=== PATIENT | male | born 1945 | race Caucasian/White ===

== ENCOUNTER → 2018-02-12 07:06 | Outpatient (CLI) | payer OTHER, SELFPAY ==
[2018-02-12 08:30] LABS: Appearance Urine UA CLEAR; Bilirubin Urine UA NEGATIVE (NEGATIVE); Color Urine UA YELLOW; Glucose Urine UA NEGATIVE (Normal); Ketones Urine UA TRACE (NEGATIVE); Leukocyte Esterase Urine UA NEGATIVE (NEGATIVE); Nitrite Urine UA Negative (Negative); Occult Blood Urine UA TRACE-INTACT (Negative); Protein Urine UA NEGATIVE (Negative); Specific Gravity Urine UA 1.015 (1.000-1.035); Urobilinogen Urine UA 0.2 E.U./dL (0.2); pH Urine UA 6.5 (4.5-8.0)
[2018-02-12 08:33] LABS: Add Manual Diff / Slide Review NO; Basophils Percent Auto 0.4 % (0-2); Eosinophils Percent Auto 2.8 % (2-4); Hematocrit 40.5 % (41-53); Hemoglobin 13.8 g/dL (13.5-17.5); Lymphocytes Percent Auto 35.6 % (25-40); Mean Corpuscular Hemoglobin 31.1 PG (26-34); Mean Corpuscular Volume 91.6 fL (80-100); Monocytes Percent Auto 9.3 % (3-14); Neutrophils Absolute Auto 3700 /uL (3000-5900); Neutrophils Percent Auto 51.9 % (50-75); Platelet Count 271 X10^3/uL (150-400); Red Blood Cell Count 4.42 X10^6/uL (4.5-5.9); Red Cell Distribution Width 14.1 % (11.6-14.8); White Blood Cell Count 7.1 X10^3/uL (4.5-11.0)
[2018-02-12 08:56] LABS: Alanine Aminotransferase 23 IU/L (21-72); Albumin 4.3 g/dL (3.5-5.0); Albumin Globulin Ratio 1.5 (1.0-2.8); Alkaline Phosphatase 61 U/L (38-126); Aspartate Aminotransferase 25 IU/L (17-59); Bilirubin Total 0.6 mg/dL (0.2-1.3); Blood Urea Nitrogen 14 mg/dL (9-20); Calcium 9.1 mg/dL (8.4-10.2); Carbon Dioxide 29 mmol/L (22-32); Chloride 103 mmol/L (98-107); Cholesterol 153 mg/dL (140-199); Estimated Glomerular Filt Rate > 60.0 mL/min (>60); Globulin 2.9 g/dL (1.7-4.1); Glucose 96 mg/dL (80-110); HDL Cholesterol 45 mg/dL (40-60); HEMOLYSIS < 15 (0-50); LDL Cholesterol Calculated 79 mg/dL (<100); Sodium 141 mmol/L (137-145); Total Protein 7.2 g/dL (6.3-8.2); Triglycerides 143 mg/dL (35-150)
[2018-02-12 09:23] LABS: Prostate Specific Antigen Scrn 0.598 ng/mL (0.1-4.0)
== END ==
PROVIDERS: Visit Provider Family Medicine
DX: I10 Essential (primary) hypertension (principal); Z51.81 Encounter for therapeutic drug level monitoring; Z12.5 Encounter for screening for malignant neoplasm of prostate
CPT/HCPCS: 36415; 80053; 80061; 81003; 84443; 85025; G0103

== ENCOUNTER 2018-02-12 10:30 | Outpatient (RCR) | payer OTHER, SELFPAY ==
--- NOTE | 2017-12-31 14:20 | PT.OTN ---
Current Diagnoses Stiffness of unspecified joint, not elsewhere classified (12/31/17) Weakness (12/31/17) Sprain of ligaments of lumbar spine, subsequent encounter (12/31/17) Presence of intraocular lens (12/31/17) Physical Therapy Treatment Note PT-OP-A Visit Information Start: 12/31/17 13:53 Freq: Status: Active Protocol: Document 12/31/17 09:45 DCW (Rec: 12/31/17 14:19 DC [id number]) Out-Patient Physical Therapy Visit Information Visit Information Visit Type Progress Note Visit Note Pt was initially evaluated 11/20, and then his got sick and was in intensive care up until last week, when unfortunately she . He has therefore not been seen since his initial evaluation, and was therefore re-assessed at the beginning of today's appointment. Visit Start Time 09:45 Visit Stop Time 10:30 Total Visit Minutes 45 Visit Number 2 Number of CITY MAIL CARRIER Visits 0 Evaluation Information Evaluation Date 11/20/17 PT-OP-B Current Condition Start: 12/31/17 13:53 Freq: Status: Active Protocol: Document 12/31/17 09:45 DCW (Rec: 12/31/17 14:19 DC [id number]) Current Condition History of Current Condition Onset Date 09/02/17 Current Complaints L2-5 TLIF/Laminectomy History of Current Condition Please see pt's initial evaluation in [facility] Treatment Goals Patient/Caregiver Goals Pt would like to return to walking his dog, crabbing/ fishing, gardening, and walking three miles daily. Prior Functional Status Baseline Function- ADL's Independent Baseline Function- Mobility Independent Baseline Function- Gait WNL Current Functional Impairments (Reported) Functional Limitations- Recreation/ Restricted due to stiffness Hobbies and pain Personal Factors Other Personal Factors That May Effect Recent passing of his Therapy/Recovery PT-OP-C Subjective Start: 12/31/17 13:53 Freq: Status: Active Protocol: Document 12/31/17 09:45 DCW (Rec: 12/31/17 14:19 DCW [id number]) OP-PT Subjective Patient Comments Patient Comments Pt reports he feels his pain has been better controlled, and he has not been taking nearly as many pain meds has he had been previously Patient Reported Progress Improving OP-PT Pain Assessment Pain Assessment Grid Paper Pain Assessment Grid Completed Yes Location Left Upper Posterior Hip Pain Location Details Area of the Quadratus Lumborum Intensity 6 Scale Used Numeric (1 - 10) Description Aching Spasm Tightness Frequency Constant PT-OP-F Manual Assessment Start: 12/31/17 13:53 Freq: Status: Active Protocol: Document 12/31/17 09:45 DCW (Rec: 12/31/17 14:19 DCW [id number]) Manual Assessments Soft Tissue Assessment Soft Tissue Mobility Assessment Quadratus Lumborum: Moderate spasm, Tenderness 3/5 - Wincing and withdrawal Joint Mobility Assessment Joint Mobility Assessment ISABELLA: Left: Positive Left. Right: Positive Left SLR: Left ipsilateral pain at 50 degrees PT-OP-K Range of Motion Start: 12/31/17 13:53 Freq: Status: Active Protocol: Document 12/31/17 09:45 DCW (Rec: 12/31/17 14:19 DCW [id number]) Lumbar Spine Range of Motion Lumbar Spine Active Degrees Testing Position Standing Flexion 20 Extension 10 PT-OP-M Strength Start: 12/31/17 13:53 Freq: Status: Active Protocol: Document 12/31/17 09:45 DCW (Rec: 12/31/17 14:19 DCW [id number]) Trunk Strength Trunk Manual Muscle Testing Core Stabilization TrA strength 4-/5 Hip Strength Hip Manual Muscle Testing Right Flexion (L2) 5 Normal Extension (S1) 5 Normal Abduction 5 Normal Adduction 5 Normal External Rotation 4 Good Internal Rotation 4 Good Left Flexion (L2) 4 Good Extension (S1) 4- Good- Abduction 4+ Good+ Adduction 4+ Good+ External Rotation 4 Good Internal Rotation 4 Good Knee Strength Knee Manual Muscle Testing Right Flexion (S2) 4+ Good+ Extension (L3) 4+ Good+ Left Flexion (S2) 4+ Good+ Extension (L3) 4+ Good+ PT-OP-Q Treatments Start: 12/31/17 13:53 Freq: Status: Active Protocol: Document 12/31/17 09:45 DCW (Rec: 12/31/17 14:19 DCW [id number]) Gym Equipment Shuttle Recovery Unilateral Squats Resistance 37# Shuttle Recovery Platform Stable Bilateral Squats Resistance 75# Shuttle Recovery Platform Stable Therapeutic Exercises Supine Exercises 2 Supine Exercise Name PPT /c TrA activation - Air Bicycle Side bilateral Reps/Minutes To fatigue x3 1 Supine Exercise Name PPT /c TrA activation - Alternating SLR Side bilateral Reps/Minutes x10 Other Exercises 3 Other Exercise Name Resisted Walking - Backward Side bilateral Resistance Green Equipment Used T-band 2 Other Exercise Name Resisted Walking - Forward Side bilateral Resistance Green Equipment Used T-band 1 Other Exercise Name Resisted Walking - Side- stepping Side bilateral Resistance Green Equipment Used T-band Manual Therapy Treatment Soft Tissue Mobilization 2 Body Location Lumbar Paraspinals Mobilization Type Myofascial Release Sustained Pressure Intensity/Depth Moderate Body Position Prone 1 Body Location Left Quadratus Mobilization Type Myofascial Release Strain/Counterstrain Sustained Pressure Intensity/Depth Moderate Body Position Prone PT-OP-T Assessment and Plan Start: 12/31/17 13:53 Freq: Status: Active Protocol: Document 12/31/17 09:45 DCW (Rec: 12/31/17 14:19 DCW [id number]) Physical Therapy Assessment Rehab Potential Rehabilitation Potential Good Impairments Impairments Activity Tolerance Functional Activities Functional Mobility Pain Posture ROM Strength Tone Goals Five Impairment Muscle tone Distance Education Teacher Goal (LTG) QL muscle tone to be mild with tenderness at worse 1/5 - Complaint of pain Four Impairment Special Test findings Distance Education Teacher Goal (LTG) Pt to test negatively with SLR and ISABELLA tests Three Impairment Strength Shelter Goal (LTG) Pt to improve Hip and knee MMT to 5/5 bilaterally in all planes LTG Duration 6 weeks Two Impairment Lumbar ROM Shelter Goal (LTG) Pt to improve lumbar ROM to 40 degrees flexion and 15 degrees extension LTG Duration 6 weeks One Impairment Activity Limitations Short Term Goal (STG) Pt to return to walking dogs to pre-morbid distances with no increased pain STG Duration 3 weeks Shelter Goal (LTG) Pt to report return to fishing with no increased pain LTG Duration 6 weeks Progress Towards Goals Progress Towards Goals Slow Progress due to Attendance Issues Assessment Summary Assessment Pt at a similar level of function compared to his last appointment, which was his initial evaluation 1.5 months ago. Pt will likely be more regular in attendance, which should hopefully assist in increasing his function and improving his ROM. Physical Therapy Plan Frequency and Duration Frequency of Treatment 2x/Week Plan of Care Start Date 11/20/17 Plan of Care End Date 02/11/18 Therapeutic Interventions Therapeutic Interventions Aquatic Therapy Home Exercise Program Joint Mobilizations Manual Therapy Neuromuscular Re-education Self-Care/Home Management Soft Tissue Mobilization Therapeutic Activities Therapeutic Exercises Modalities Cold Pack/Ice Massage Electric Stimulation Hot Packs Ultrasound Next Visit Focus/Plan Next Visit Plan Continued Core strengthening, improve lumbar ROM, hip/knee strengthening.
--- NOTE | 2018-01-05 13:55 | PT.OTN ---
Current Diagnoses Stiffness of unspecified joint, not elsewhere classified (01/05/18) Weakness (01/05/18) Sprain of ligaments of lumbar spine, subsequent encounter (01/05/18) Presence of intraocular lens (01/05/18) Physical Therapy Treatment Note PT-OP-A Visit Information Start: 12/31/17 13:53 Freq: Status: Active Protocol: Document 01/05/18 09:45 DCW (Rec: 01/05/18 13:55 DCW [id number]) Out-Patient Physical Therapy Visit Information Visit Information Visit Type Treatment Note Visit Start Time 09:45 Visit Stop Time 10:30 Total Visit Minutes 45 Visit Number 3 Number of TRIPE COOKER Visits 0 Evaluation Information Evaluation Date 11/20/17 PT-OP-B Current Condition Start: 12/31/17 13:53 Freq: Status: Active Protocol: Document 12/31/17 09:45 DCW (Rec: 12/31/17 14:19 DCW [id number]) Current Condition History of Current Condition Onset Date 09/02/17 Current Complaints L2-5 TLIF/Laminectomy History of Current Condition Please see pt's initial evaluation in [facility] Treatment Goals Patient/Caregiver Goals Pt would like to return to walking his dog, crabbing/ fishing, gardening, and walking three miles daily. Prior Functional Status Baseline Function- ADL's Independent Baseline Function- Mobility Independent Baseline Function- Gait WNL Current Functional Impairments (Reported) Functional Limitations- Recreation/ Restricted due to stiffness Hobbies and pain Personal Factors Other Personal Factors That May Effect Recent passing of his Therapy/Recovery PT-OP-C Subjective Start: 12/31/17 13:53 Freq: Status: Active Protocol: Document 01/05/18 09:45 DCW (Rec: 01/05/18 13:55 DCW [id number]) OP-PT Subjective Patient Comments Patient Comments Pt reports his back has been hurting a little more the past few days. PT-OP-F Manual Assessment Start: 12/31/17 13:53 Freq: Status: Active Protocol: Document 12/31/17 09:45 DCW (Rec: 12/31/17 14:19 DCW [id number]) Manual Assessments Soft Tissue Assessment Soft Tissue Mobility Assessment Quadratus Lumborum: Moderate spasm, Tenderness 3/5 - Wincing and withdrawal Joint Mobility Assessment Joint Mobility Assessment ISABELLA: Left: Positive Left. Right: Positive Left SLR: Left ipsilateral pain at 50 degrees PT-OP-K Range of Motion Start: 12/31/17 13:53 Freq: Status: Active Protocol: Document 12/31/17 09:45 DCW (Rec: 12/31/17 14:19 DCW [id number]) Lumbar Spine Range of Motion Lumbar Spine Active Degrees Testing Position Standing Flexion 20 Extension 10 PT-OP-M Strength Start: 12/31/17 13:53 Freq: Status: Active Protocol: Document 12/31/17 09:45 DCW (Rec: 12/31/17 14:19 DCW [id number]) Trunk Strength Trunk Manual Muscle Testing Core Stabilization TrA strength 4-/5 Hip Strength Hip Manual Muscle Testing Right Flexion (L2) 5 Normal Extension (S1) 5 Normal Abduction 5 Normal Adduction 5 Normal External Rotation 4 Good Internal Rotation 4 Good Left Flexion (L2) 4 Good Extension (S1) 4- Good- Abduction 4+ Good+ Adduction 4+ Good+ External Rotation 4 Good Internal Rotation 4 Good Knee Strength Knee Manual Muscle Testing Right Flexion (S2) 4+ Good+ Extension (L3) 4+ Good+ Left Flexion (S2) 4+ Good+ Extension (L3) 4+ Good+ PT-OP-Q Treatments Start: 12/31/17 13:53 Freq: Status: Active Protocol: Document 01/05/18 09:45 DCW (Rec: 01/05/18 13:55 DCW [id number]) Cardio Equipment Recumbent Bicycle Duration (Minutes) 5 Resistance 5 Seat Position 6 Gym Equipment Shuttle Recovery Unilateral Squats Resistance 37# Shuttle Recovery Platform Stable Bilateral Squats Resistance 75# Shuttle Recovery Platform Stable Therapeutic Exercises Supine Exercises 4 Supine Exercise Name Bridging with Marching Side bilateral 3 Supine Exercise Name Bridging Side bilateral Comments Focus on TrA activation Sidelying Exercises 1 Sidelying Exercise Name Reach and Roll Side bilateral Other Exercises 3 Other Exercise Name Resisted Walking - Backward Side bilateral Resistance Green Equipment Used T-band 2 Other Exercise Name Resisted Walking - Forward Side bilateral Resistance Green Equipment Used T-band 1 Other Exercise Name Resisted Walking - Side- stepping Side bilateral Resistance Green Equipment Used T-band Manual Therapy Treatment Soft Tissue Mobilization 2 Body Location Lumbar Paraspinals Mobilization Type Myofascial Release Sustained Pressure Intensity/Depth Moderate Body Position Prone 1 Body Location Left Quadratus Mobilization Type Myofascial Release Strain/Counterstrain Sustained Pressure Intensity/Depth Moderate Body Position Prone PT-OP-T Assessment and Plan Start: 12/31/17 13:53 Freq: Status: Active Protocol: Document 01/05/18 09:45 DCW (Rec: 01/05/18 13:55 DCW [id number]) Physical Therapy Assessment Rehab Potential Rehabilitation Potential Good Impairments Impairments Activity Tolerance Functional Activities Functional Mobility Pain Posture ROM Strength Tone Goals Five Impairment Muscle tone Small Kick Press Operator Goal (LTG) QL muscle tone to be mild with tenderness at worse 1/5 - Complaint of pain LTG Duration 02/11/18 Four Impairment Special Test findings Assisted Goal (LTG) Pt to test negatively with SLR and ISABELLA tests LTG Duration 02/11/18 Three Impairment Strength Small Kick Press Operator Goal (LTG) Pt to improve Hip and knee MMT to 5/5 bilaterally in all planes LTG Duration 02/11/18 Two Impairment Lumbar ROM Assisted Goal (LTG) Pt to improve lumbar ROM to 40 degrees flexion and 15 degrees extension LTG Duration 02/11/18 One Impairment Activity Limitations Short Term Goal (STG) Pt to return to walking dogs to pre-morbid distances with no increased pain STG Duration 01/21/18 Small Kick Press Operator Goal (LTG) Pt to report return to fishing with no increased pain LTG Duration 02/11/18 Progress Towards Goals Progress Towards Goals Slow Progress due to Attendance Issues Assessment Summary Assessment Pt tolerated TherEx well today , no new complaints, despite pt reporting increased pain at beginning of therapy session Physical Therapy Plan Frequency and Duration Frequency of Treatment 2x/Week Plan of Care Start Date 11/20/17 Plan of Care End Date 02/11/18 Therapeutic Interventions Therapeutic Interventions Aquatic Therapy Home Exercise Program Joint Mobilizations Manual Therapy Neuromuscular Re-education Self-Care/Home Management Soft Tissue Mobilization Therapeutic Activities Therapeutic Exercises Modalities Cold Pack/Ice Massage Electric Stimulation Hot Packs Ultrasound Next Visit Focus/Plan Next Visit Plan Core Stability, increased spinal ROM Please Sign and Return: I have reviewed this Plan of Care and certify that the skilled therapy services above are required to meet the patient???s needs. Physician Signature Date Printed Name and Credentials Clinical Instructor Signature Printed Name and Credentials
--- NOTE | 2018-01-07 10:28 | PT.OTN ---
Current Diagnoses Stiffness of unspecified joint, not elsewhere classified (01/07/18) Weakness (01/07/18) Sprain of ligaments of lumbar spine, subsequent encounter (01/07/18) Presence of intraocular lens (01/07/18) Physical Therapy Treatment Note PT-OP-A Visit Information Start: 12/31/17 13:53 Freq: Status: Active Protocol: Document 01/07/18 09:45 DCW (Rec: 01/07/18 10:28 DCW [id number]) Out-Patient Physical Therapy Visit Information Visit Information Visit Type Treatment Note Visit Start Time 09:45 Visit Stop Time 10:30 Total Visit Minutes 45 Visit Number 4 Number of SENIOR SOLUTIONS ENGINEER Visits 0 Evaluation Information Evaluation Date 11/20/17 PT-OP-B Current Condition Start: 12/31/17 13:53 Freq: Status: Active Protocol: Document 12/31/17 09:45 DCW (Rec: 12/31/17 14:19 DCW [id number]) Current Condition History of Current Condition Onset Date 09/02/17 Current Complaints L2-5 TLIF/Laminectomy History of Current Condition Please see pt's initial evaluation in [facility] Treatment Goals Patient/Caregiver Goals Pt would like to return to walking his dog, crabbing/ fishing, gardening, and walking three miles daily. Prior Functional Status Baseline Function- ADL's Independent Baseline Function- Mobility Independent Baseline Function- Gait WNL Current Functional Impairments (Reported) Functional Limitations- Recreation/ Restricted due to stiffness Hobbies and pain Personal Factors Other Personal Factors That May Effect Recent passing of his Therapy/Recovery PT-OP-C Subjective Start: 12/31/17 13:53 Freq: Status: Active Protocol: Document 01/07/18 09:45 DCW (Rec: 01/07/18 10:28 DCW [id number]) OP-PT Subjective Patient Comments Patient Comments My back feels better than it did on Friday, but it's still a little sore. OP-PT Pain Assessment Location Left Upper Posterior Hip Intensity 5 Scale Used Numeric (1 - 10) Home Pain Medication Use Pain Medications Used Yes: OxyContin 5 mg Home Pain Medication Frequency 3x/day PT-OP-F Manual Assessment Start: 12/31/17 13:53 Freq: Status: Active Protocol: Document 12/31/17 09:45 DCW (Rec: 12/31/17 14:19 DCW [id number]) PT-OP-Q Treatments Start: 12/31/17 13:53 Freq: Status: Active Protocol: Document 01/07/18 09:45 DCW (Rec: 01/07/18 10:28 DCW [id number]) Cardio Equipment Recumbent Bicycle Duration (Minutes) 5 Resistance 5 Seat Position 6 Gym Equipment Shuttle Recovery Unilateral Squats Resistance 37# Shuttle Recovery Platform Stable Bilateral Squats Resistance 75# Shuttle Recovery Platform Stable Shuttle Balance 1 Details Red - Wide ALICE, Staggered Stance Reps/Duration 10' Therapeutic Exercises Other Exercises 3 Other Exercise Name Resisted Walking - Backward Side bilateral Resistance Green Equipment Used T-band 2 Other Exercise Name Resisted Walking - Forward Side bilateral Resistance Green Equipment Used T-band 1 Other Exercise Name Resisted Walking - Side- stepping Side bilateral Resistance Green Equipment Used T-band Manual Therapy Treatment Soft Tissue Mobilization 2 Body Location Lumbar Paraspinals Mobilization Type Myofascial Release Sustained Pressure Intensity/Depth Moderate Body Position Prone 1 Body Location Left Quadratus Mobilization Type Myofascial Release Strain/Counterstrain Sustained Pressure Intensity/Depth Moderate Body Position Prone PT-OP-T Assessment and Plan Start: 12/31/17 13:53 Freq: Status: Active Protocol: Document 01/07/18 09:45 DCW (Rec: 01/07/18 10:28 DCW [id number]) Physical Therapy Assessment Rehab Potential Rehabilitation Potential Good Impairments Impairments Activity Tolerance Functional Activities Functional Mobility Pain Posture ROM Strength Tone Goals Five Impairment Muscle tone Shelter Goal (LTG) QL muscle tone to be mild with tenderness at worse 1/5 - Complaint of pain LTG Duration 02/11/18 Four Impairment Special Test findings Shelter Goal (LTG) Pt to test negatively with SLR and ISABELLA tests LTG Duration 02/11/18 Three Impairment Strength Fellmongery Worker Goal (LTG) Pt to improve Hip and knee MMT to 5/5 bilaterally in all planes LTG Duration 02/11/18 Two Impairment Lumbar ROM Fellmongery Worker Goal (LTG) Pt to improve lumbar ROM to 40 degrees flexion and 15 degrees extension LTG Duration 02/11/18 One Impairment Activity Limitations Short Term Goal (STG) Pt to return to walking dogs to pre-morbid distances with no increased pain STG Duration 01/21/18 Shelter Goal (LTG) Pt to report return to fishing with no increased pain LTG Duration 02/11/18 Assessment Summary Assessment Pt performed well today, addition of Shuttle Balance went well, despite patient's initial apprehension. Physical Therapy Plan Frequency and Duration Frequency of Treatment 2x/Week Plan of Care Start Date 11/20/17 Plan of Care End Date 02/11/18 Therapeutic Interventions Therapeutic Interventions Aquatic Therapy Home Exercise Program Joint Mobilizations Manual Therapy Neuromuscular Re-education Self-Care/Home Management Soft Tissue Mobilization Therapeutic Activities Therapeutic Exercises Modalities Cold Pack/Ice Massage Electric Stimulation Hot Packs Ultrasound Next Visit Focus/Plan Next Visit Plan Core Stability, increased spinal ROM
--- NOTE | 2018-01-14 16:44 | PT.OTN ---
Current Diagnoses Stiffness of unspecified joint, not elsewhere classified (01/14/18) Weakness (01/14/18) Sprain of ligaments of lumbar spine, subsequent encounter (01/14/18) Presence of intraocular lens (01/14/18) Physical Therapy Treatment Note PT-OP-A Visit Information Start: 12/31/17 13:53 Freq: Status: Active Protocol: Document 01/14/18 16:00 DCW (Rec: 01/14/18 16:44 DCW [id number]) Out-Patient Physical Therapy Visit Information Visit Information Visit Type Treatment Note Visit Start Time 16:00 Visit Stop Time 16:45 Total Visit Minutes 45 Visit Number 5 Number of SUPERVISOR CONCRETE PIPE PLANT Visits 0 Evaluation Information Evaluation Date 11/20/17 PT-OP-B Current Condition Start: 12/31/17 13:53 Freq: Status: Active Protocol: Document 12/31/17 09:45 DCW (Rec: 12/31/17 14:19 DCW [id number]) Current Condition History of Current Condition Onset Date 09/02/17 Current Complaints L2-5 TLIF/Laminectomy History of Current Condition Please see pt's initial evaluation in [facility] Treatment Goals Patient/Caregiver Goals Pt would like to return to walking his dog, crabbing/ fishing, gardening, and walking three miles daily. Prior Functional Status Baseline Function- ADL's Independent Baseline Function- Mobility Independent Baseline Function- Gait WNL Current Functional Impairments (Reported) Functional Limitations- Recreation/ Restricted due to stiffness Hobbies and pain Personal Factors Other Personal Factors That May Effect Recent passing of his Therapy/Recovery PT-OP-C Subjective Start: 12/31/17 13:53 Freq: Status: Active Protocol: Document 01/14/18 16:00 DCW (Rec: 01/14/18 16:44 DCW [id number]) OP-PT Subjective Patient Comments Patient Comments Pt reports his back was very sore yesterday, but he is doing better today. PT-OP-Q Treatments Start: 12/31/17 13:53 Freq: Status: Active Protocol: Document 01/14/18 16:00 DCW (Rec: 01/14/18 16:44 DCW [id number]) Cardio Equipment Recumbent Bicycle Duration (Minutes) 5 Resistance 5 Seat Position 8 Gym Equipment Shuttle Recovery Unilateral Squats Resistance 37# Shuttle Recovery Platform Stable Reps/Time x20 Bilateral Squats Resistance 75# Shuttle Recovery Platform Stable Reps/Time x20 Shuttle Balance 1 Details Red - Wide ALICE, Staggered Stance Reps/Duration 10' Therapeutic Exercises Supine Exercises 5 Supine Exercise Name [id number] shoulder Piriformis stretch Side left Comments 40 second hold Other Exercises 3 Other Exercise Name Resisted Walking - Backward Side bilateral Resistance Green Equipment Used T-band 2 Other Exercise Name Resisted Walking - Forward Side bilateral Resistance Green Equipment Used T-band 1 Other Exercise Name Resisted Walking - Side- stepping Side bilateral Resistance Green Equipment Used T-band Manual Therapy Treatment Soft Tissue Mobilization 3 Body Location Piriformis Mobilization Type Sustained Pressure Intensity/Depth Deep Body Position Prone 2 Body Location Lumbar Paraspinals Mobilization Type Myofascial Release Sustained Pressure Intensity/Depth Moderate Body Position Prone 1 Body Location Left Quadratus Mobilization Type Myofascial Release Strain/Counterstrain Sustained Pressure Intensity/Depth Moderate Body Position Prone PT-OP-T Assessment and Plan Start: 12/31/17 13:53 Freq: Status: Active Protocol: Document 01/14/18 16:00 DCW (Rec: 01/14/18 16:44 DCW [id number]) Physical Therapy Assessment Rehab Potential Rehabilitation Potential Good Impairments Impairments Activity Tolerance Functional Activities Functional Mobility Pain Posture ROM Strength Tone Goals Five Impairment Muscle tone Comb Fixer Goal (LTG) QL muscle tone to be mild with tenderness at worse 1/5 - Complaint of pain LTG Duration 02/11/18 Four Impairment Special Test findings Comb Fixer Goal (LTG) Pt to test negatively with SLR and ISABELLA tests LTG Duration 02/11/18 Three Impairment Strength [facility] Goal (LTG) Pt to improve Hip and knee MMT to 5/5 bilaterally in all planes LTG Duration 02/11/18 Two Impairment Lumbar ROM Comb Fixer Goal (LTG) Pt to improve lumbar ROM to 40 degrees flexion and 15 degrees extension LTG Duration 02/11/18 One Impairment Activity Limitations Short Term Goal (STG) Pt to return to walking dogs to pre-morbid distances with no increased pain STG Duration 01/21/18 [facility] Goal (LTG) Pt to report return to fishing with no increased pain LTG Duration 02/11/18 Assessment Summary Assessment Pt appeared to respond well to manual theray on his piriformis, notes decrease in leg pain. Physical Therapy Plan Frequency and Duration Frequency of Treatment 2x/Week Plan of Care Start Date 11/20/17 Plan of Care End Date 02/11/18 Therapeutic Interventions Therapeutic Interventions Aquatic Therapy Home Exercise Program Joint Mobilizations Manual Therapy Neuromuscular Re-education Self-Care/Home Management Soft Tissue Mobilization Therapeutic Activities Therapeutic Exercises Modalities Cold Pack/Ice Massage Electric Stimulation Hot Packs Ultrasound Next Visit Focus/Plan Next Visit Plan Core Stability, increased spinal ROM, decreased tone.
--- NOTE | 2018-01-21 10:25 | PT.OTN ---
Current Diagnoses Stiffness of unspecified joint, not elsewhere classified (01/21/18) Weakness (01/21/18) Sprain of ligaments of lumbar spine, subsequent encounter (01/21/18) Presence of intraocular lens (01/21/18) Physical Therapy Treatment Note PT-OP-A Visit Information Start: 12/31/17 13:53 Freq: Status: Active Protocol: Document 01/21/18 09:45 DCW (Rec: 01/21/18 10:24 DCW [id number]) Out-Patient Physical Therapy Visit Information Visit Information Visit Type Treatment Note Visit Start Time 09:45 Visit Stop Time 10:30 Total Visit Minutes 45 Visit Number 6 Number of TELEMARKETER SUPERVISOR Visits 0 Evaluation Information Evaluation Date 11/20/17 PT-OP-B Current Condition Start: 12/31/17 13:53 Freq: Status: Active Protocol: Document 12/31/17 09:45 DCW (Rec: 12/31/17 14:19 DCW [id number]) Current Condition History of Current Condition Onset Date 09/02/17 Current Complaints L2-5 TLIF/Laminectomy History of Current Condition Please see pt's initial evaluation in [facility] Treatment Goals Patient/Caregiver Goals Pt would like to return to walking his dog, crabbing/ fishing, gardening, and walking three miles daily. Prior Functional Status Baseline Function- ADL's Independent Baseline Function- Mobility Independent Baseline Function- Gait WNL Current Functional Impairments (Reported) Functional Limitations- Recreation/ Restricted due to stiffness Hobbies and pain Personal Factors Other Personal Factors That May Effect Recent passing of his Therapy/Recovery PT-OP-C Subjective Start: 12/31/17 13:53 Freq: Status: Active Protocol: Document 01/21/18 09:45 DCW (Rec: 01/21/18 10:24 DCW [id number]) OP-PT Subjective Patient Comments Patient Comments Pt reports his right low back has been bothering him since Friday. PT-OP-Q Treatments Start: 12/31/17 13:53 Freq: Status: Active Protocol: Document 01/21/18 09:45 DCW (Rec: 01/21/18 10:24 DCW [id number]) Cardio Equipment Recumbent Bicycle Duration (Minutes) 5 Resistance 6 Seat Position 5 Gym Equipment Shuttle Recovery Unilateral Squats Resistance 37# Shuttle Recovery Platform Stable Reps/Time x20 Bilateral Squats Resistance 75# Shuttle Recovery Platform Stable Reps/Time x20 Shuttle Balance 1 Details Red - Wide ALICE, Staggered Stance Reps/Duration 10' Therapeutic Exercises Supine Exercises 5 Supine Exercise Name Zpgj-in-sdxmhavl shoulder Piriformis stretch Side left Comments 40 second hold Other Exercises 3 Other Exercise Name Resisted Walking - Backward Side bilateral Resistance Green Equipment Used T-band 2 Other Exercise Name Resisted Walking - Forward Side bilateral Resistance Green Equipment Used T-band 1 Other Exercise Name Resisted Walking - Side- stepping Side bilateral Resistance Green Equipment Used T-band Manual Therapy Treatment Soft Tissue Mobilization 3 Body Location Piriformis Mobilization Type Sustained Pressure Intensity/Depth Deep Body Position Prone 2 Body Location Lumbar Paraspinals Mobilization Type Myofascial Release Sustained Pressure Intensity/Depth Moderate Body Position Prone 1 Body Location Left Quadratus Mobilization Type Myofascial Release Strain/Counterstrain Sustained Pressure Intensity/Depth Moderate Body Position Prone PT-OP-T Assessment and Plan Start: 12/31/17 13:53 Freq: Status: Active Protocol: Document 01/21/18 09:45 DCW (Rec: 01/21/18 10:24 DCW [id number]) Physical Therapy Assessment Rehab Potential Rehabilitation Potential Good Impairments Impairments Activity Tolerance Functional Activities Functional Mobility Pain Posture ROM Strength Tone Goals Five Impairment Muscle tone Opal Miner Goal (LTG) QL muscle tone to be mild with tenderness at worse 1/5 - Complaint of pain LTG Duration 02/11/18 Four Impairment Special Test findings Intermediate Goal (LTG) Pt to test negatively with SLR and ISABELLA tests LTG Duration 02/11/18 Three Impairment Strength Intermediate Goal (LTG) Pt to improve Hip and knee MMT to 5/5 bilaterally in all planes LTG Duration 02/11/18 Two Impairment Lumbar ROM Opal Miner Goal (LTG) Pt to improve lumbar ROM to 40 degrees flexion and 15 degrees extension LTG Duration 02/11/18 One Impairment Activity Limitations Short Term Goal (STG) Pt to return to walking dogs to pre-morbid distances with no increased pain STG Duration 01/21/18 Opal Miner Goal (LTG) Pt to report return to fishing with no increased pain LTG Duration 02/11/18 Assessment Summary Assessment Pt seems to have a bit more pain and tenderness to palpation today, however was able to tolerate manual therapy. Physical Therapy Plan Frequency and Duration Frequency of Treatment 2x/Week Plan of Care Start Date 11/20/17 Plan of Care End Date 02/11/18 Therapeutic Interventions Therapeutic Interventions Aquatic Therapy Home Exercise Program Joint Mobilizations Manual Therapy Neuromuscular Re-education Self-Care/Home Management Soft Tissue Mobilization Therapeutic Activities Therapeutic Exercises Modalities Cold Pack/Ice Massage Electric Stimulation Hot Packs Ultrasound Next Visit Focus/Plan Next Visit Plan Core Stability, increased spinal ROM, decreased tone.
--- NOTE | 2018-01-26 11:56 | PT.OTN ---
Current Diagnoses Stiffness of unspecified joint, not elsewhere classified (01/26/18) Weakness (01/26/18) Sprain of ligaments of lumbar spine, subsequent encounter (01/26/18) Presence of intraocular lens (01/26/18) Physical Therapy Treatment Note PT-OP-A Visit Information Start: 12/31/17 13:53 Freq: Status: Active Protocol: Document 01/26/18 11:15 DCW (Rec: 01/26/18 11:56 DCW [id number]) Out-Patient Physical Therapy Visit Information Visit Information Visit Type Treatment Note Visit Start Time 11:15 Visit Stop Time 12:00 Total Visit Minutes 45 Visit Number 7 Number of DIABETES CLINICAL MANAGER Visits 0 Evaluation Information Evaluation Date 11/20/17 PT-OP-B Current Condition Start: 12/31/17 13:53 Freq: Status: Active Protocol: Document 12/31/17 09:45 DCW (Rec: 12/31/17 14:19 DCW [id number]) Current Condition History of Current Condition Onset Date 09/02/17 Current Complaints L2-5 TLIF/Laminectomy History of Current Condition Please see pt's initial evaluation in [facility] Treatment Goals Patient/Caregiver Goals Pt would like to return to walking his dog, crabbing/ fishing, gardening, and walking three miles daily. Prior Functional Status Baseline Function- ADL's Independent Baseline Function- Mobility Independent Baseline Function- Gait WNL Current Functional Impairments (Reported) Functional Limitations- Recreation/ Restricted due to stiffness Hobbies and pain Personal Factors Other Personal Factors That May Effect Recent passing of his Therapy/Recovery PT-OP-C Subjective Start: 12/31/17 13:53 Freq: Status: Active Protocol: Document 01/26/18 11:15 DCW (Rec: 01/26/18 11:56 DCW [id number]) OP-PT Subjective Patient Comments Patient Comments Pt notes that after driving to [place] and back this past weekend, he woke up this morning pretty sore. PT-OP-Q Treatments Start: 12/31/17 13:53 Freq: Status: Active Protocol: Document 01/26/18 11:15 DCW (Rec: 01/26/18 11:56 DCW [id number]) Cardio Equipment Recumbent Bicycle Duration (Minutes) 5 Resistance 6 Seat Position 5 Gym Equipment Shuttle Recovery Unilateral Squats Resistance 37# Shuttle Recovery Platform Stable Reps/Time x20 Bilateral Squats Resistance 75# Shuttle Recovery Platform Stable Reps/Time x20 Shuttle Balance 1 Details Red - Wide ALICE, Staggered Stance Reps/Duration 10' Therapeutic Exercises Supine Exercises 5 Supine Exercise Name Urhq-cr-sgcoillt shoulder Piriformis stretch Side left Comments 40 second hold 4 Supine Exercise Name Bridging with Marching Side bilateral Other Exercises 3 Other Exercise Name Resisted Walking - Backward Side bilateral Resistance Green Equipment Used T-band 2 Other Exercise Name Resisted Walking - Forward Side bilateral Resistance Green Equipment Used T-band 1 Other Exercise Name Resisted Walking - Side- stepping Side bilateral Resistance Green Equipment Used T-band Manual Therapy Treatment Soft Tissue Mobilization 3 Body Location Piriformis Mobilization Type Sustained Pressure Intensity/Depth Deep Body Position Prone 2 Body Location Lumbar Paraspinals Mobilization Type Myofascial Release Sustained Pressure Intensity/Depth Moderate Body Position Prone 1 Body Location Left Quadratus Mobilization Type Myofascial Release Strain/Counterstrain Sustained Pressure Intensity/Depth Moderate Body Position Prone PT-OP-T Assessment and Plan Start: 12/31/17 13:53 Freq: Status: Active Protocol: Document 01/26/18 11:15 DCW (Rec: 01/26/18 11:56 DCW [id number]) Physical Therapy Assessment Rehab Potential Rehabilitation Potential Good Impairments Impairments Activity Tolerance Functional Activities Functional Mobility Pain Posture ROM Strength Tone Goals Five Impairment Muscle tone [facility] Goal (LTG) QL muscle tone to be mild with tenderness at worse 1/5 - Complaint of pain LTG Duration 02/11/18 Four Impairment Special Test findings [facility] Goal (LTG) Pt to test negatively with SLR and ISABELLA tests LTG Duration 02/11/18 Three Impairment Strength Disassembler Goal (LTG) Pt to improve Hip and knee MMT to 5/5 bilaterally in all planes LTG Duration 02/11/18 Two Impairment Lumbar ROM Disassembler Goal (LTG) Pt to improve lumbar ROM to 40 degrees flexion and 15 degrees extension LTG Duration 02/11/18 One Impairment Activity Limitations Short Term Goal (STG) Pt to return to walking dogs to pre-morbid distances with no increased pain STG Duration 01/21/18 [facility]ci Goal (LTG) Pt to report return to fishing with no increased pain LTG Duration 02/11/18 Assessment Summary Assessment Pt notes some of his stretches continue to feel pretty good. Physical Therapy Plan Frequency and Duration Frequency of Treatment 2x/Week Plan of Care Start Date 11/20/17 Plan of Care End Date 02/11/18 Therapeutic Interventions Therapeutic Interventions Aquatic Therapy Home Exercise Program Joint Mobilizations Manual Therapy Neuromuscular Re-education Self-Care/Home Management Soft Tissue Mobilization Therapeutic Activities Therapeutic Exercises Modalities Cold Pack/Ice Massage Electric Stimulation Hot Packs Ultrasound Next Visit Focus/Plan Next Visit Plan Core Stability, increased spinal ROM, decreased tone. Please Sign and Return: I have reviewed this Plan of Care and certify that the skilled therapy services above are required to meet the patient?s needs. Physician Signature Date Printed Name and Credentials Clinical Instructor Signature Printed Name and Credentials
--- NOTE | 2018-01-29 11:55 | PT.OTN ---
Current Diagnoses Stiffness of unspecified joint, not elsewhere classified (01/29/18) Weakness (01/29/18) Sprain of ligaments of lumbar spine, subsequent encounter (01/29/18) Presence of intraocular lens (01/29/18) Physical Therapy Treatment Note PT-OP-A Visit Information Start: 12/31/17 13:53 Freq: Status: Active Protocol: Document 01/29/18 11:15 DCW (Rec: 01/29/18 11:55 DCW [id number]) Out-Patient Physical Therapy Visit Information Visit Information Visit Type Treatment Note Visit Start Time 11:15 Visit Stop Time 12:00 Total Visit Minutes 45 Visit Number 8 Number of BRIM ROUNDER Visits 0 Evaluation Information Evaluation Date 11/20/17 PT-OP-B Current Condition Start: 12/31/17 13:53 Freq: Status: Active Protocol: Document 12/31/17 09:45 DCW (Rec: 12/31/17 14:19 DCW [id number]) Current Condition History of Current Condition Onset Date 09/02/17 Current Complaints L2-5 TLIF/Laminectomy History of Current Condition Please see pt's initial evaluation in [facility] Treatment Goals Patient/Caregiver Goals Pt would like to return to walking his dog, crabbing/ fishing, gardening, and walking three miles daily. Prior Functional Status Baseline Function- ADL's Independent Baseline Function- Mobility Independent Baseline Function- Gait WNL Current Functional Impairments (Reported) Functional Limitations- Recreation/ Restricted due to stiffness Hobbies and pain Personal Factors Other Personal Factors That May Effect Recent passing of his Therapy/Recovery PT-OP-C Subjective Start: 12/31/17 13:53 Freq: Status: Active Protocol: Document 01/29/18 11:15 DCW (Rec: 01/29/18 11:55 DCW [id number]) OP-PT Subjective Patient Comments Patient Comments Pt feeling better today, but notes continued twinges of pain in his back. PT-OP-Q Treatments Start: 12/31/17 13:53 Freq: Status: Active Protocol: Document 01/29/18 11:15 DCW (Rec: 01/29/18 11:55 DCW [id number]) Cardio Equipment Recumbent Bicycle Duration (Minutes) 5 Resistance 6 Seat Position 5 Gym Equipment Shuttle Recovery Unilateral Squats Resistance 37# Shuttle Recovery Platform Stable Reps/Time x20 Bilateral Squats Resistance 87# Shuttle Recovery Platform Stable Reps/Time x20 Shuttle Balance 1 Details Red - Wide ALICE, Staggered Stance Reps/Duration 10' Therapeutic Exercises Supine Exercises 6 Supine Exercise Name Hamstring Stretch Side bilateral Comments Manual 5 Supine Exercise Name Aobi-ha-ovakkudf shoulder Piriformis stretch Side left Comments 40 second hold 4 Supine Exercise Name Bridging with Marching Side bilateral Other Exercises 3 Other Exercise Name Resisted Walking - Backward Side bilateral Resistance Green Equipment Used T-band 2 Other Exercise Name Resisted Walking - Forward Side bilateral Resistance Green Equipment Used T-band 1 Other Exercise Name Resisted Walking - Side- stepping Side bilateral Resistance Green Equipment Used T-band Manual Therapy Treatment Soft Tissue Mobilization 3 Body Location Piriformis Mobilization Type Sustained Pressure Intensity/Depth Deep Body Position Prone 2 Body Location Lumbar Paraspinals Mobilization Type Myofascial Release Sustained Pressure Intensity/Depth Moderate Body Position Prone 1 Body Location Left Quadratus Mobilization Type Myofascial Release Strain/Counterstrain Sustained Pressure Intensity/Depth Moderate Body Position Prone PT-OP-T Assessment and Plan Start: 12/31/17 13:53 Freq: Status: Active Protocol: Document 01/29/18 11:15 DCW (Rec: 01/29/18 11:55 DCW [id number]) Physical Therapy Assessment Rehab Potential Rehabilitation Potential Good Impairments Impairments Activity Tolerance Functional Activities Functional Mobility Pain Posture ROM Strength Tone Goals Five Impairment Muscle tone [facility]pc Goal (LTG) QL muscle tone to be mild with tenderness at worse 1/5 - Complaint of pain LTG Duration 02/11/18 Four Impairment Special Test findings Rivet Catcher Goal (LTG) Pt to test negatively with SLR and ISABELLA tests LTG Duration 02/11/18 Three Impairment Strength Rivet Catcher Goal (LTG) Pt to improve Hip and knee MMT to 5/5 bilaterally in all planes LTG Duration 02/11/18 Two Impairment Lumbar ROM Fpc Goal (LTG) Pt to improve lumbar ROM to 40 degrees flexion and 15 degrees extension LTG Duration 02/11/18 One Impairment Activity Limitations Short Term Goal (STG) Pt to return to walking dogs to pre-morbid distances with no increased pain STG Duration 01/21/18 Fpc Goal (LTG) Pt to report return to fishing with no increased pain LTG Duration 02/11/18 Assessment Summary Assessment Pt continuing to make small progress, improved ROM and core stability. Physical Therapy Plan Frequency and Duration Frequency of Treatment 2x/Week Plan of Care Start Date 11/20/17 Plan of Care End Date 02/11/18 Therapeutic Interventions Therapeutic Interventions Aquatic Therapy Home Exercise Program Joint Mobilizations Manual Therapy Neuromuscular Re-education Self-Care/Home Management Soft Tissue Mobilization Therapeutic Activities Therapeutic Exercises Modalities Cold Pack/Ice Massage Electric Stimulation Hot Packs Ultrasound Next Visit Focus/Plan Next Visit Plan Core Stability, increased spinal ROM, decreased tone.
--- NOTE | 2018-02-02 12:42 | PT.OTN ---
Current Diagnoses Stiffness of unspecified joint, not elsewhere classified (02/02/18) Weakness (02/02/18) Sprain of ligaments of lumbar spine, subsequent encounter (02/02/18) Presence of intraocular lens (02/02/18) Physical Therapy Treatment Note PT-OP-A Visit Information Start: 12/31/17 13:53 Freq: Status: Active Protocol: Document 02/02/18 12:00 DCW (Rec: 02/02/18 12:41 DCW [id number]) Out-Patient Physical Therapy Visit Information Visit Information Visit Type Treatment Note Visit Start Time 12:00 Visit Stop Time 12:45 Total Visit Minutes 45 Visit Number 9 Number of OUTDOOR FITNESS TRAINER Visits 0 Evaluation Information Evaluation Date 11/20/17 PT-OP-B Current Condition Start: 12/31/17 13:53 Freq: Status: Active Protocol: Document 12/31/17 09:45 DCW (Rec: 12/31/17 14:19 DCW [id number]) Current Condition History of Current Condition Onset Date 09/02/17 Current Complaints L2-5 TLIF/Laminectomy History of Current Condition Please see pt's initial evaluation in [facility] Treatment Goals Patient/Caregiver Goals Pt would like to return to walking his dog, crabbing/ fishing, gardening, and walking three miles daily. Prior Functional Status Baseline Function- ADL's Independent Baseline Function- Mobility Independent Baseline Function- Gait WNL Current Functional Impairments (Reported) Functional Limitations- Recreation/ Restricted due to stiffness Hobbies and pain Personal Factors Other Personal Factors That May Effect Recent passing of his Therapy/Recovery PT-OP-C Subjective Start: 12/31/17 13:53 Freq: Status: Active Protocol: Document 02/02/18 12:00 DCW (Rec: 02/02/18 12:41 DCW [id number]) OP-PT Subjective Patient Comments Patient Comments Pt reports his back has been about the same, admits that his back bothered him quite a bit more on Friday after spending most of the day up and walking around. Patient Reported Progress Same PT-OP-Q Treatments Start: 12/31/17 13:53 Freq: Status: Active Protocol: Document 02/02/18 12:00 DCW (Rec: 02/02/18 12:41 DCW [id number]) Cardio Equipment Recumbent Bicycle Duration (Minutes) 5 Resistance 6 Seat Position 5 Gym Equipment Shuttle Recovery Unilateral Squats Resistance 50# Shuttle Recovery Platform Stable Reps/Time x20 Bilateral Squats Resistance 100# Shuttle Recovery Platform Stable Reps/Time x20 Shuttle Balance 1 Details Red - Wide ALICE, Staggered Stance Reps/Duration 10' Therapeutic Ball 1 Exercise Details Upper trunk rotation vs Lv 2 T -band Ball Size/Color Green - 65 cm Body Position Sitting Reps/Duration x15 each direction Therapeutic Exercises Other Exercises 3 Other Exercise Name Resisted Walking - Backward Side bilateral Resistance Green Equipment Used T-band 2 Other Exercise Name Resisted Walking - Forward Side bilateral Resistance Green Equipment Used T-band 1 Other Exercise Name Resisted Walking - Side- stepping Side bilateral Resistance Green Equipment Used T-band Manual Therapy Treatment Soft Tissue Mobilization 3 Body Location Piriformis Mobilization Type Sustained Pressure Intensity/Depth Deep Body Position Prone 2 Body Location Lumbar Paraspinals Mobilization Type Myofascial Release Sustained Pressure Intensity/Depth Moderate Body Position Prone 1 Body Location Left Quadratus Mobilization Type Myofascial Release Strain/Counterstrain Sustained Pressure Intensity/Depth Moderate Body Position Prone PT-OP-T Assessment and Plan Start: 12/31/17 13:53 Freq: Status: Active Protocol: Document 02/02/18 12:00 DCW (Rec: 02/02/18 12:41 DCW [id number]) Physical Therapy Assessment Rehab Potential Rehabilitation Potential Good Impairments Impairments Activity Tolerance Functional Activities Functional Mobility Pain Posture ROM Strength Tone Goals Five Impairment Muscle tone [facility] Goal (LTG) QL muscle tone to be mild with tenderness at worse 1/5 - Complaint of pain LTG Duration 02/11/18 Four Impairment Special Test findings [facility]dc Goal (LTG) Pt to test negatively with SLR and ISABELLA tests LTG Duration 02/11/18 Three Impairment Strength [facility]dc Goal (LTG) Pt to improve Hip and knee MMT to 5/5 bilaterally in all planes LTG Duration 02/11/18 Two Impairment Lumbar ROM [facility] Goal (LTG) Pt to improve lumbar ROM to 40 degrees flexion and 15 degrees extension LTG Duration 02/11/18 One Impairment Activity Limitations Short Term Goal (STG) Pt to return to walking dogs to pre-morbid distances with no increased pain STG Duration 01/21/18 Licensed Journeyman Electrician Goal (LTG) Pt to report return to fishing with no increased pain LTG Duration 02/11/18 Assessment Summary Assessment Pt having increased tenderness to palpation today Physical Therapy Plan Frequency and Duration Frequency of Treatment 2x/Week Plan of Care Start Date 11/20/17 Plan of Care End Date 02/11/18 Therapeutic Interventions Therapeutic Interventions Aquatic Therapy Home Exercise Program Joint Mobilizations Manual Therapy Neuromuscular Re-education Self-Care/Home Management Soft Tissue Mobilization Therapeutic Activities Therapeutic Exercises Modalities Cold Pack/Ice Massage Electric Stimulation Hot Packs Ultrasound Next Visit Focus/Plan Next Note Type Treatment Note Next Visit Plan Core Stability, increased spinal ROM, decreased tone.
--- NOTE | 2018-02-05 11:16 | PT.OTN ---
Current Diagnoses Stiffness of unspecified joint, not elsewhere classified (02/05/18) Weakness (02/05/18) Sprain of ligaments of lumbar spine, subsequent encounter (02/05/18) Presence of intraocular lens (02/05/18) Physical Therapy Treatment Note PT-OP-A Visit Information Start: 12/31/17 13:53 Freq: Status: Active Protocol: Document 02/05/18 10:30 DCW (Rec: 02/05/18 11:16 DCW [id number]) Out-Patient Physical Therapy Visit Information Visit Information Visit Type Treatment Note Visit Start Time 10:30 Visit Stop Time 11:15 Total Visit Minutes 45 Visit Number 10 Number of GREASE PRESS HELPER Visits 0 Evaluation Information Evaluation Date 11/20/17 PT-OP-B Current Condition Start: 12/31/17 13:53 Freq: Status: Active Protocol: Document 12/31/17 09:45 DCW (Rec: 12/31/17 14:19 DCW [id number]) Current Condition History of Current Condition Onset Date 09/02/17 Current Complaints L2-5 TLIF/Laminectomy History of Current Condition Please see pt's initial evaluation in [facility] Treatment Goals Patient/Caregiver Goals Pt would like to return to walking his dog, crabbing/ fishing, gardening, and walking three miles daily. Prior Functional Status Baseline Function- ADL's Independent Baseline Function- Mobility Independent Baseline Function- Gait WNL Current Functional Impairments (Reported) Functional Limitations- Recreation/ Restricted due to stiffness Hobbies and pain Personal Factors Other Personal Factors That May Effect Recent passing of his Therapy/Recovery PT-OP-C Subjective Start: 12/31/17 13:53 Freq: Status: Active Protocol: Document 02/05/18 10:30 DCW (Rec: 02/05/18 11:16 DCW [id number]) OP-PT Subjective Patient Comments Patient Comments Pt reports that he was able to walk his dog without a cane for the first time this morning, and that while his back is sore, it is no worse than normal. PT-OP-Q Treatments Start: 12/31/17 13:53 Freq: Status: Active Protocol: Document 02/05/18 10:30 DCW (Rec: 02/05/18 11:16 DCW [id number]) Cardio Equipment Recumbent Bicycle Duration (Minutes) 5 Resistance 6 Seat Position 4 Gym Equipment Shuttle Recovery Unilateral Squats Resistance 50# Shuttle Recovery Platform Stable Reps/Time x20 Bilateral Squats Resistance 100# Shuttle Recovery Platform Stable Reps/Time x20 Shuttle Balance 1 Details Red - Wide ALICE, Staggered Stance Reps/Duration 10' Therapeutic Ball 1 Exercise Details Upper trunk rotation vs Lv 2 T -band Ball Size/Color Green - 65 cm Body Position Sitting Reps/Duration x20 each direction Therapeutic Exercises Standing Exercises 2 Standing Exercise Name PNF Lift Side bilateral Resistance Lv 3 Equipment Used T-band Reps/Minutes x15 1 Standing Exercise Name PNF Chop Side bilateral Resistance Lv 3 Equipment Used T-band Reps/Minutes x15 Manual Therapy Treatment Soft Tissue Mobilization 3 Body Location Piriformis Mobilization Type Sustained Pressure Intensity/Depth Deep Body Position Prone 2 Body Location Lumbar Paraspinals Mobilization Type Myofascial Release Sustained Pressure Intensity/Depth Moderate Body Position Prone 1 Body Location Left Quadratus Mobilization Type Myofascial Release Strain/Counterstrain Sustained Pressure Intensity/Depth Moderate Body Position Prone PT-OP-T Assessment and Plan Start: 12/31/17 13:53 Freq: Status: Active Protocol: Document 02/05/18 10:30 DCW (Rec: 02/05/18 11:16 DCW [id number]) Physical Therapy Assessment Rehab Potential Rehabilitation Potential Good Impairments Impairments Activity Tolerance Functional Activities Functional Mobility Pain Posture ROM Strength Tone Goals Five Impairment Muscle tone Detention Goal (LTG) QL muscle tone to be mild with tenderness at worse 1/5 - Complaint of pain LTG Duration 02/11/18 Four Impairment Special Test findings Ophthalmology Technician Goal (LTG) Pt to test negatively with SLR and ISABELLA tests LTG Duration 02/11/18 Three Impairment Strength Ophthalmology Technician Goal (LTG) Pt to improve Hip and knee MMT to 5/5 bilaterally in all planes LTG Duration 02/11/18 Two Impairment Lumbar ROM Ophthalmology Technician Goal (LTG) Pt to improve lumbar ROM to 40 degrees flexion and 15 degrees extension LTG Duration 02/11/18 One Impairment Activity Limitations Short Term Goal (STG) Pt to return to walking dogs to pre-morbid distances with no increased pain STG Duration 01/21/18 Detention Goal (LTG) Pt to report return to fishing with no increased pain LTG Duration 02/11/18 Assessment Summary Assessment Pt doing well today, decreased tenderness vs last visit, and tolerated new exercises well. Physical Therapy Plan Frequency and Duration Frequency of Treatment 2x/Week Plan of Care Start Date 11/20/17 Plan of Care End Date 02/11/18 Therapeutic Interventions Therapeutic Interventions Aquatic Therapy Home Exercise Program Joint Mobilizations Manual Therapy Neuromuscular Re-education Self-Care/Home Management Soft Tissue Mobilization Therapeutic Activities Therapeutic Exercises Modalities Cold Pack/Ice Massage Electric Stimulation Hot Packs Ultrasound Next Visit Focus/Plan Next Note Type Treatment Note Next Visit Plan Core Stability, increased spinal ROM, decreased tone.
--- NOTE | 2018-02-09 11:10 | PT.OTN ---
Current Diagnoses Stiffness of unspecified joint, not elsewhere classified (02/09/18) Weakness (02/09/18) Sprain of ligaments of lumbar spine, subsequent encounter (02/09/18) Presence of intraocular lens (02/09/18) Physical Therapy Treatment Note PT-OP-A Visit Information Start: 12/31/17 13:53 Freq: Status: Active Protocol: Document 02/09/18 10:30 DCW (Rec: 02/09/18 11:10 DCW [id number]) Out-Patient Physical Therapy Visit Information Visit Information Visit Type Treatment Note Visit Start Time 10:30 Visit Stop Time 11:15 Total Visit Minutes 45 Visit Number 11 Number of CREDIT OFFICER Visits 0 Evaluation Information Evaluation Date 11/20/17 PT-OP-B Current Condition Start: 12/31/17 13:53 Freq: Status: Active Protocol: Document 12/31/17 09:45 DCW (Rec: 12/31/17 14:19 DCW [id number]) Current Condition History of Current Condition Onset Date 09/02/17 Current Complaints L2-5 TLIF/Laminectomy History of Current Condition Please see pt's initial evaluation in [facility] Treatment Goals Patient/Caregiver Goals Pt would like to return to walking his dog, crabbing/ fishing, gardening, and walking three miles daily. Prior Functional Status Baseline Function- ADL's Independent Baseline Function- Mobility Independent Baseline Function- Gait WNL Current Functional Impairments (Reported) Functional Limitations- Recreation/ Restricted due to stiffness Hobbies and pain Personal Factors Other Personal Factors That May Effect Recent passing of his Therapy/Recovery PT-OP-C Subjective Start: 12/31/17 13:53 Freq: Status: Active Protocol: Document 02/09/18 10:30 DCW (Rec: 02/09/18 11:10 DCW [id number]) OP-PT Subjective Patient Comments Patient Comments Pt reports continued pain along his left posterior belt line. PT-OP-Q Treatments Start: 12/31/17 13:53 Freq: Status: Active Protocol: Document 02/09/18 10:30 DCW (Rec: 02/09/18 11:10 DCW [id number]) Cardio Equipment Recumbent Bicycle Duration (Minutes) 5 Resistance 6 Seat Position 4 Gym Equipment Therapeutic Ball 2 Exercise Details Bridging /c feet on ball Ball Size/Color Red - 55 cm Body Position Supine Reps/Duration x20 1 Exercise Details Upper trunk rotation vs Lv 2 T -band Ball Size/Color Green - 65 cm Body Position Sitting Reps/Duration x20 each direction Therapeutic Exercises Supine Exercises 4 Supine Exercise Name Bridging with Marching Side bilateral Standing Exercises 2 Standing Exercise Name PNF Lift Side bilateral Resistance Lv 3 Equipment Used T-band Reps/Minutes x15 1 Standing Exercise Name PNF Chop Side bilateral Resistance Lv 3 Equipment Used T-band Reps/Minutes x15 Other Exercises 3 Other Exercise Name Resisted Walking - Backward Side bilateral Resistance Green Equipment Used T-band 2 Other Exercise Name Resisted Walking - Forward Side bilateral Resistance Green Equipment Used T-band 1 Other Exercise Name Resisted Walking - Side- stepping Side bilateral Resistance Green Equipment Used T-band Manual Therapy Treatment Soft Tissue Mobilization 3 Body Location Piriformis Mobilization Type Sustained Pressure Intensity/Depth Deep Body Position Prone 2 Body Location Lumbar Paraspinals Mobilization Type Myofascial Release Sustained Pressure Intensity/Depth Moderate Body Position Prone 1 Body Location Left Quadratus Mobilization Type Myofascial Release Strain/Counterstrain Sustained Pressure Intensity/Depth Moderate Body Position Prone PT-OP-T Assessment and Plan Start: 12/31/17 13:53 Freq: Status: Active Protocol: Document 02/09/18 10:30 DCW (Rec: 02/09/18 11:10 DCW [id number]) Physical Therapy Assessment Rehab Potential Rehabilitation Potential Good Impairments Impairments Activity Tolerance Functional Activities Functional Mobility Pain Posture ROM Strength Tone Goals Five Impairment Muscle tone Fci Goal (LTG) QL muscle tone to be mild with tenderness at worse 1/5 - Complaint of pain LTG Duration 02/11/18 Four Impairment Special Test findings Fci Goal (LTG) Pt to test negatively with SLR and ISABELLA tests LTG Duration 02/11/18 Three Impairment Strength Fci Goal (LTG) Pt to improve Hip and knee MMT to 5/5 bilaterally in all planes LTG Duration 02/11/18 Two Impairment Lumbar ROM Fci Goal (LTG) Pt to improve lumbar ROM to 40 degrees flexion and 15 degrees extension LTG Duration 02/11/18 One Impairment Activity Limitations Short Term Goal (STG) Pt to return to walking dogs to pre-morbid distances with no increased pain STG Duration 01/21/18 Fci Goal (LTG) Pt to report return to fishing with no increased pain LTG Duration 02/11/18 Assessment Summary Assessment Pt continues to progress, although slowly Physical Therapy Plan Frequency and Duration Frequency of Treatment 2x/Week Plan of Care Start Date 11/20/17 Plan of Care End Date 02/11/18 Therapeutic Interventions Therapeutic Interventions Aquatic Therapy Home Exercise Program Joint Mobilizations Manual Therapy Neuromuscular Re-education Self-Care/Home Management Soft Tissue Mobilization Therapeutic Activities Therapeutic Exercises Modalities Cold Pack/Ice Massage Electric Stimulation Hot Packs Ultrasound Next Visit Focus/Plan Next Note Type Progress Note Next Visit Plan Core Stability, increased spinal ROM, decreased tone.
--- NOTE | 2018-02-12 11:18 | PT.OTN ---
Current Diagnoses Stiffness of unspecified joint, not elsewhere classified (02/12/18) Weakness (02/12/18) Sprain of ligaments of lumbar spine, subsequent encounter (02/12/18) Presence of intraocular lens (02/12/18) Physical Therapy Treatment Note PT-OP-A Visit Information Start: 12/31/17 13:53 Freq: Status: Active Protocol: Document 02/12/18 10:30 DCW (Rec: 02/12/18 11:17 DCW [id number]) Out-Patient Physical Therapy Visit Information Visit Information Visit Type Progress Note Visit Start Time 10:30 Visit Stop Time 11:15 Total Visit Minutes 45 Visit Number 12 Number of PRINCIPAL DEVELOPER Visits 0 Evaluation Information Evaluation Date 11/20/17 PT-OP-B Current Condition Start: 12/31/17 13:53 Freq: Status: Active Protocol: Document 12/31/17 09:45 DCW (Rec: 12/31/17 14:19 DCW [id number]) Current Condition History of Current Condition Onset Date 09/02/17 Current Complaints L2-5 TLIF/Laminectomy History of Current Condition Please see pt's initial evaluation in [facility] Treatment Goals Patient/Caregiver Goals Pt would like to return to walking his dog, crabbing/ fishing, gardening, and walking three miles daily. Prior Functional Status Baseline Function- ADL's Independent Baseline Function- Mobility Independent Baseline Function- Gait WNL Current Functional Impairments (Reported) Functional Limitations- Recreation/ Restricted due to stiffness Hobbies and pain Personal Factors Other Personal Factors That May Effect Recent passing of his Therapy/Recovery PT-OP-C Subjective Start: 12/31/17 13:53 Freq: Status: Active Protocol: Document 02/12/18 10:30 DCW (Rec: 02/12/18 11:17 DCW [id number]) OP-PT Subjective Patient Comments Patient Comments Pt still waiting for authorization from [facility] for continued therapy. OP-PT Pain Assessment Location Left Upper Posterior Hip Intensity 8 Scale Used Numeric (1 - 10) Frequency Occasional Patient Stated Pain Goal Pt notes pain is less frequent PT-OP-F Manual Assessment Start: 12/31/17 13:53 Freq: Status: Active Protocol: Document 02/12/18 10:30 DCW (Rec: 02/12/18 11:17 DCW [id number]) Manual Assessments Soft Tissue Assessment Soft Tissue Mobility Assessment Quadratus Lumborum: Moderate spasm, Tenderness 2/5 - Pain and wincing Joint Mobility Assessment Joint Mobility Assessment ISABELLA: Left: Positive Ipsilateral. Right: Positive Ipsilateral SLR: Left ipsilateral pain at 50 degrees PT-OP-K Range of Motion Start: 12/31/17 13:53 Freq: Status: Active Protocol: Document 02/12/18 10:30 DCW (Rec: 02/12/18 11:17 DCW [id number]) Lumbar Spine Range of Motion Lumbar Spine Active Degrees Testing Position Standing Flexion 30 Extension 15 PT-OP-M Strength Start: 12/31/17 13:53 Freq: Status: Active Protocol: Document 02/12/18 10:30 DCW (Rec: 02/12/18 11:17 DCW [id number]) Trunk Strength Trunk Manual Muscle Testing Core Stabilization TrA strength 4/5 Hip Strength Hip Manual Muscle Testing Right Flexion (L2) 5 Normal Extension (S1) 5 Normal Abduction 5 Normal Adduction 5 Normal External Rotation 5 Normal Internal Rotation 5 Normal Left Flexion (L2) 4+ Good+ Extension (S1) 4 Good Abduction 4+ Good+ Adduction 4+ Good+ External Rotation 4+ Good+ Internal Rotation 4+ Good+ Knee Strength Knee Manual Muscle Testing Right Flexion (S2) 5 Normal Extension (L3) 5 Normal Left Flexion (S2) 4+ Good+ Extension (L3) 4+ Good+ PT-OP-Q Treatments Start: 12/31/17 13:53 Freq: Status: Active Protocol: Document 02/12/18 10:30 DCW (Rec: 02/12/18 11:17 DCW [id number]) Cardio Equipment Recumbent Bicycle Duration (Minutes) 5 Resistance 6 Seat Position 4 Gym Equipment Shuttle Recovery Unilateral Squats Resistance 50# Shuttle Recovery Platform Stable Reps/Time x20 Bilateral Squats Resistance 100# Shuttle Recovery Platform Stable Reps/Time x20 Therapeutic Ball 1 Exercise Details Upper trunk rotation vs Lv 2 T -band Ball Size/Color Green - 65 cm Body Position Sitting Reps/Duration x20 each direction Therapeutic Exercises Standing Exercises 2 Standing Exercise Name PNF Lift Side bilateral Resistance Lv 3 Equipment Used T-band Reps/Minutes x15 1 Standing Exercise Name PNF Chop Side bilateral Resistance Lv 3 Equipment Used T-band Reps/Minutes x15 Manual Therapy Treatment Soft Tissue Mobilization 3 Body Location Piriformis Mobilization Type Sustained Pressure Intensity/Depth Deep Body Position Prone 2 Body Location Lumbar Paraspinals Mobilization Type Myofascial Release Sustained Pressure Intensity/Depth Moderate Body Position Prone 1 Body Location Left Quadratus Mobilization Type Myofascial Release Strain/Counterstrain Sustained Pressure Intensity/Depth Moderate Body Position Prone PT-OP-T Assessment and Plan Start: 12/31/17 13:53 Freq: Status: Active Protocol: Document 02/12/18 10:30 DCW (Rec: 02/12/18 11:17 DCW [id number]) Physical Therapy Assessment Rehab Potential Rehabilitation Potential Good Impairments Impairments Activity Tolerance Functional Activities Functional Mobility Pain Posture ROM Strength Tone Goals Five Impairment Muscle tone Longterm Goal (LTG) QL muscle tone to be mild with tenderness at worse 1/5 - Complaint of pain LTG Duration 03/12/18 Four Impairment Special Test findings Longterm Goal (LTG) Pt to test negatively with SLR and ISABELLA tests LTG Duration 03/12/18 Three Impairment Strength Longterm Goal (LTG) Pt to improve Hip and knee MMT to 5/5 bilaterally in all planes LTG Duration 03/12/18 Two Impairment Lumbar ROM Vp Securities Goal (LTG) Pt to improve lumbar ROM to 40 degrees flexion and 15 degrees extension LTG Duration 03/12/18 One Impairment Activity Limitations Short Term Goal (STG) Pt to return to walking dogs to pre-morbid distances with no increased pain STG Duration Met Longterm Goal (LTG) Pt to report return to fishing with no increased pain LTG Duration 03/12/18 Progress Towards Goals Progress Towards Goals Slow Progress - Other Assessment Summary Assessment Pt admits therapy has helped him so far, would like to continue if he gets further authorization. Pt has improved some LE strength and ROM, however many of his complaints and limitations remain. Pt should benefit from continued therapy focusing on improving strength, ROM, functional mobility, pain control, and stability. Physical Therapy Plan Frequency and Duration Frequency of Treatment 2x/Week Duration of Treatment 12 weeks Plan of Care Start Date 02/12/18 Plan of Care End Date 05/07/18 Therapeutic Interventions Therapeutic Interventions Aquatic Therapy Home Exercise Program Joint Mobilizations Manual Therapy Neuromuscular Re-education Self-Care/Home Management Soft Tissue Mobilization Therapeutic Activities Therapeutic Exercises Modalities Cold Pack/Ice Massage Electric Stimulation Hot Packs Ultrasound Next Visit Focus/Plan Next Note Type Treatment Note Next Visit Plan Continue current POC
--- NOTE | 2018-02-12 11:19 | PT.OPPOC ---
Current Diagnoses Stiffness of unspecified joint, not elsewhere classified (02/12/18) Weakness (02/12/18) Sprain of ligaments of lumbar spine, subsequent encounter (02/12/18) Presence of intraocular lens (02/12/18) Provider Visit Care Team Role Provider Type Abram Morrison MD Family Provider Physician Primary Care Provider Specialty: Family Practice Address: [address] [place] [address], [id number] Email: [email or web address] Gerardo Russo MD Attending Provider Physician Specialty: Orthopedic Surgery Address: [address] [place] [address], [id number] Email: [email or web address] Plan Of Care PT-OP-T Assessment and Plan Start: 12/31/17 13:53 Freq: Status: Active Protocol: Document 02/12/18 10:30 DCW (Rec: 02/12/18 11:17 DCW [id number]) Physical Therapy Assessment Rehab Potential Rehabilitation Potential Good Impairments Impairments Activity Tolerance Functional Activities Functional Mobility Pain Posture ROM Strength Tone Goals Five Impairment Muscle tone Correction Goal (LTG) QL muscle tone to be mild with tenderness at worse 1/5 - Complaint of pain LTG Duration 03/12/18 Four Impairment Special Test findings Correction Goal (LTG) Pt to test negatively with SLR and ISABELLA tests LTG Duration 03/12/18 Three Impairment Strength Correction Goal (LTG) Pt to improve Hip and knee MMT to 5/5 bilaterally in all planes LTG Duration 03/12/18 Two Impairment Lumbar ROM Nursing Instructor Goal (LTG) Pt to improve lumbar ROM to 40 degrees flexion and 15 degrees extension LTG Duration 03/12/18 One Impairment Activity Limitations Short Term Goal (STG) Pt to return to walking dogs to pre-morbid distances with no increased pain STG Duration Met Correction Goal (LTG) Pt to report return to fishing with no increased pain LTG Duration 03/12/18 Progress Towards Goals Progress Towards Goals Slow Progress - Other Assessment Summary Assessment Pt admits therapy has helped him so far, would like to continue if he gets further authorization. Pt has improved some LE strength and ROM, however many of his complaints and limitations remain. Pt should benefit from continued therapy focusing on improving strength, ROM, functional mobility, pain control, and stability. Physical Therapy Plan Frequency and Duration Frequency of Treatment 2x/Week Duration of Treatment 12 weeks Plan of Care Start Date 02/12/18 Plan of Care End Date 05/07/18 Therapeutic Interventions Therapeutic Interventions Aquatic Therapy Home Exercise Program Joint Mobilizations Manual Therapy Neuromuscular Re-education Self-Care/Home Management Soft Tissue Mobilization Therapeutic Activities Therapeutic Exercises Modalities Cold Pack/Ice Massage Electric Stimulation Hot Packs Ultrasound Next Visit Focus/Plan Next Note Type Treatment Note Next Visit Plan Continue current POC Plan of Care Dates Plan of Care Start Date 02/12/18 Plan of Care End Date 05/07/18 Please Sign and Return: I have reviewed this Plan of Care and certify that the skilled therapy services above are required to meet the patient?s needs. Physician Signature Date Printed Name and Credentials Clinical Instructor Signature Printed Name and Credentials
--- NOTE | 2018-05-25 17:22 | PT.OPDS ---
Current Diagnoses Stiffness of unspecified joint, not elsewhere classified (02/12/18) Weakness (02/12/18) Sprain of ligaments of lumbar spine, subsequent encounter (02/12/18) Presence of intraocular lens (02/12/18) Provider Visit Care Team Role Provider Type Abram Morrison MD Family Provider Physician Primary Care Provider Specialty: Family Practice Address: [address] [place] [address], [id number] Email: [email or web address] Gerardo Russo MD Attending Provider Physician Specialty: Orthopedic Surgery Address: [address] [place] [address], [id number] Email: [email or web address] Visit Number Visit Number 12 Discharge Summary PT-OP-B Current Condition Start: 12/31/17 13:53 Freq: Status: Active Protocol: Document 12/31/17 09:45 DCW (Rec: 12/31/17 14:19 DCW [id number]) Current Condition History of Current Condition Onset Date 09/02/17 Current Complaints L2-5 TLIF/Laminectomy History of Current Condition Please see pt's initial evaluation in [facility] Treatment Goals Patient/Caregiver Goals Pt would like to return to walking his dog, crabbing/ fishing, gardening, and walking three miles daily. Prior Functional Status Baseline Function- ADL's Independent Baseline Function- Mobility Independent Baseline Function- Gait WNL Current Functional Impairments (Reported) Functional Limitations- Recreation/ Restricted due to stiffness Hobbies and pain Personal Factors Other Personal Factors That May Effect Recent passing of his Therapy/Recovery PT-OP-C Subjective Start: 12/31/17 13:53 Freq: Status: Active Protocol: Document 02/12/18 10:30 DCW (Rec: 02/12/18 11:17 DCW [id number]) OP-PT Subjective Patient Comments Patient Comments Pt still waiting for authorization from [employer] for continued therapy. OP-PT Pain Assessment Location Left Upper Posterior Hip Intensity 8 Scale Used Numeric (1 - 10) Frequency Occasional Patient Stated Pain Goal Pt notes pain is less frequent PT-OP-F Manual Assessment Start: 12/31/17 13:53 Freq: Status: Active Protocol: Document 02/12/18 10:30 DCW (Rec: 02/12/18 11:17 DCW [id number]) Manual Assessments Soft Tissue Assessment Soft Tissue Mobility Assessment Quadratus Lumborum: Moderate spasm, Tenderness 2/5 - Pain and wincing Joint Mobility Assessment Joint Mobility Assessment ISABELLA: Left: Positive Ipsilateral. Right: Positive Ipsilateral SLR: Left ipsilateral pain at 50 degrees PT-OP-K Range of Motion Start: 12/31/17 13:53 Freq: Status: Active Protocol: Document 02/12/18 10:30 DCW (Rec: 02/12/18 11:17 DCW [id number]) Lumbar Spine Range of Motion Lumbar Spine Active Degrees Testing Position Standing Flexion 30 Extension 15 PT-OP-M Strength Start: 12/31/17 13:53 Freq: Status: Active Protocol: Document 02/12/18 10:30 DCW (Rec: 02/12/18 11:17 DCW [id number]) Trunk Strength Trunk Manual Muscle Testing Core Stabilization TrA strength 4/5 Hip Strength Hip Manual Muscle Testing Right Flexion (L2) 5 Normal Extension (S1) 5 Normal Abduction 5 Normal Adduction 5 Normal External Rotation 5 Normal Internal Rotation 5 Normal Left Flexion (L2) 4+ Good+ Extension (S1) 4 Good Abduction 4+ Good+ Adduction 4+ Good+ External Rotation 4+ Good+ Internal Rotation 4+ Good+ Knee Strength Knee Manual Muscle Testing Right Flexion (S2) 5 Normal Extension (L3) 5 Normal Left Flexion (S2) 4+ Good+ Extension (L3) 4+ Good+ PT-OP-T Assessment and Plan Start: 12/31/17 13:53 Freq: Status: Active Protocol: Document 05/25/18 17:20 DCW (Rec: 05/25/18 17:22 DCW [id number]) Physical Therapy Assessment Goals Five Impairment Muscle tone [facility] Goal (LTG) QL muscle tone to be mild with tenderness at worse 1/5 - Complaint of pain LTG Duration 03/12/18 Four Impairment Special Test findings [facility] Goal (LTG) Pt to test negatively with SLR and ISABELLA tests LTG Duration 03/12/18 Three Impairment Strength [facility] Goal (LTG) Pt to improve Hip and knee MMT to 5/5 bilaterally in all planes LTG Duration 03/12/18 Two Impairment Lumbar ROM [facility] Goal (LTG) Pt to improve lumbar ROM to 40 degrees flexion and 15 degrees extension LTG Duration 03/12/18 One Impairment Activity Limitations Short Term Goal (STG) Pt to return to walking dogs to pre-morbid distances with no increased pain STG Duration Met Order Fulfillment Specialist Goal (LTG) Pt to report return to fishing with no increased pain LTG Duration 03/12/18 Physical Therapy Plan Discharge Physical Therapy Discharge Reasons No Longer Attending PT Discharge Comments Pt initially was placed on hold due to insurance visit limitations, and he was attempting to get further authorization. Unfortunately, pt has now not been seen in more than three months, and will require a new referral in order to return to physical therapy. Pt will be discharged from skilled PT at this time.
== END 2018-05-29 11:39 ==
LOC: PHYS 10:30
PROVIDERS: Family Provider Family Medicine; PCP Family Medicine; Visit Provider Orthopaedic Surgery
DX: S33.5XXD Sprain of ligaments of lumbar spine, subsequent encounter (principal); Z96.1 Presence of intraocular lens; M25.60 Stiffness of unspecified joint, not elsewhere classified; R53.1 Weakness
CPT/HCPCS: 97110; 97112; 97140

== ENCOUNTER → 2018-09-02 06:58 | Outpatient (CLI) | payer OTHER, SELFPAY ==
[2018-09-02 08:45] LABS: Appearance Urine UA CLEAR; Bilirubin Urine UA NEGATIVE (NEGATIVE); Color Urine UA YELLOW; Glucose Urine UA NEGATIVE (Negative); Ketones Urine UA NEGATIVE (NEGATIVE); Leukocyte Esterase Urine UA NEGATIVE (NEGATIVE); Nitrite Urine UA NEGATIVE (Negative); Occult Blood Urine UA NEGATIVE (Negative); Protein Urine UA NEGATIVE (Negative); Specific Gravity Urine UA 1.015 (1.000-1.035); Urobilinogen Urine UA 0.2 E.U./dL (0.2)
[2018-09-02 08:49] LABS: Add Manual Diff / Slide Review NO; Basophils Absolute Auto 0 /uL (0-100); Basophils Percent Auto 0.5 % (0-2); Eosinophils Absolute Auto 300 /uL (0-450); Eosinophils Percent Auto 4.4 % (2-4); Hematocrit 41.3 % (41-53); Hemoglobin 13.9 g/dL (13.5-17.5); Lymphocytes Absolute Auto 2800 /uL (1100-4500); Lymphocytes Percent Auto 37.9 % (25-40); Mean Corpuscular HGB Conc 33.7 % (30-36); Mean Corpuscular Hemoglobin 31.9 PG (26-34); Mean Corpuscular Volume 94.6 fL (80-100); Monocytes Absolute Auto 800 /uL (0-900); Monocytes Percent Auto 11.1 % (3-14); Neutrophils Absolute Auto 3500 /uL (1500-7000); Neutrophils Percent Auto 46.1 % (50-75); Platelet Count 260 X10^3/uL (150-400); Red Blood Cell Count 4.37 X10^6/uL (4.5-5.9); Red Cell Distribution Width 13.1 % (11.6-14.8); White Blood Cell Count 7.5 X10^3/uL (4.5-11.0)
[2018-09-02 09:00] LABS: Alanine Aminotransferase 28 IU/L (21-72); Albumin 4.5 g/dL (3.5-5.0); Albumin Globulin Ratio 1.6 (1.0-2.8); Alkaline Phosphatase 53 U/L (38-126); Aspartate Aminotransferase 29 IU/L (17-59); BUN Creatinine Ratio 22.9 (6-22); Bilirubin Total 0.6 mg/dL (0.2-1.3); Blood Urea Nitrogen 16 mg/dL (9-20); Calcium 9.2 mg/dL (8.4-10.2); Carbon Dioxide 27 mmol/L (22-32); Chloride 103 mmol/L (98-107); Cholesterol 162 mg/dL (140-199); Estimated Glomerular Filt Rate > 60.0 mL/min (>60); Globulin 2.9 g/dL (1.7-4.1); Glucose 89 mg/dL (80-110); HDL Cholesterol 40 mg/dL (40-60); HEMOLYSIS < 15 (0-50); LDL Cholesterol Calculated 89 mg/dL (<100); Potassium 4.3 mmol/L (3.4-5.1); Sodium 141 mmol/L (137-145); Total Protein 7.4 g/dL (6.3-8.2); Triglycerides 167 mg/dL (35-150)
[2018-09-02 09:29] LABS: Prostate Specific Antigen Scrn 0.619 ng/mL (0.1-4.0)
[2018-09-02 10:13] LABS: Thyroid Stimulating Hormone 1.39 uIU/mL (0.47-4.68)
== END ==
PROVIDERS: PCP Family Medicine; Visit Provider Family Medicine
DX: E78.00 Pure hypercholesterolemia, unspecified (principal); I10 Essential (primary) hypertension; Z12.5 Encounter for screening for malignant neoplasm of prostate
CPT/HCPCS: 36415; 80053; 80061; 81003; 84443; 85025; G0103

== ENCOUNTER → 2018-09-18 11:42 | Outpatient (CLI) | payer OTHER, SELFPAY ==
--- NOTE | 2018-09-18 | DI.CT.S_ITS ---
PROCEDURE: CT LUMBAR SPINE WO CON INDICATIONS: SPRAIN OF LIGAMENTS TECHNIQUE: Noncontrast 3 mm thick sections acquired from the T12 level to the sacrum. Sagittal and coronal reformats were constructed. For radiation dose reduction, the following was used: automated exposure control. COMPARISON: [facility] [place], CR, XR LUMBAR SPINE 2 OR 3 VIEWS, 09/02/2018, 8:18. [facility], MR, L-SPINE WITHOUT CONTRAST, 05/28/2017, 9:06. FINDINGS: Image quality: Excellent. Bones: Postsurgical changes compatible with L2-L5 left unilateral posterior fusion and interbody fusion noted. Orthopedic hardware is intact. No lucency is identified at the bone hardware interface. Postsurgical changes compatible with left L3-L4 and L4-L5 left hemilaminotomies noted. There is mild L1-L2 retrolisthesis. There is mild L3-L4 anterolisthesis. No acute vertebral body compression fractures. No suspicious lytic or blastic bony lesions. . No pars defects. T12-L1: Disc height is normal. Minimal, diffuse disc bulge. No central stenosis. No neural foraminal narrowing. No neural impingement. L1-L2: Slight loss of disc height. Endplate osteophytosis. Mild right and moderate left facet hypertrophy. Mild, diffuse disc bulge. Mild to moderate narrowing of the central canal. Moderate bilateral neural foraminal narrowing. No definite neural impingement. L2-L3: Status post fusion. Endplate osteophytosis. Endplate sclerosis and facet chondral cyst formation noted. Mild bilateral facet hypertrophy. Mild to moderate narrowing of the central canal. Moderate right and mild left neural foraminal narrowing. No neural impingement. L3-L4: Status post fusion. Mild right and moderate left facet hypertrophy. Mild, diffuse disc bulge. Moderate narrowing of the central canal. Moderate right and [id number]-rf-lvzvlr left neural foraminal narrowing a slight flattened deformity exiting left L3 nerve root. L4-L5: The status post fusion. Mild right and moderate left facet hypertrophy. No central stenosis. Mild right and cbuxznfg-ec-icsotg left neural foraminal narrowing with slight flattened deformity exiting left L4 nerve root. L5-S1: Status post fusion. No central stenosis. Moderate bilateral facet hypertrophy. Moderate right and mild left neural foraminal narrowing. No neural impingement. Soft tissues: No retroperitoneal masses or hematomas. Visualized aorta is normal in caliber. 4 mm nonobstructing right renal stone is noted. Partially visualized left renal cyst. Atherosclerotic calcifications are noted in the visualized abdominal pelvic vasculature. Numerous diverticuli noted in the visualized colon without evidence of diverticulitis. IMPRESSION: 1. Postsurgical changes. 2. Multilevel degenerative disease. 3. Multilevel facet arthropathy. 4. Mild to moderate L1-L2, L2-L3 and L3-L4 central canal narrowing. 5. Moderate right and gprzpwwz-lm-qzcove left L3-L4 neural foraminal narrowing. Mild right and rrrlrtzg-hu-zcdazz left L4-L5 neural foraminal narrowing. Moderate bilateral L1-L2 neuroforaminal narrowing. Moderate right and mild left L2-L3 and L5-S1 neural foraminal narrowing. 6. Slight flattened deformity exiting left L3 nerve root and the exiting left L4 nerve root secondary to neural foraminal narrowing. Please correlate with clinical data. Dictated by: Whit Bermudez MD, PhD on 09/18/2018 at 13:48 Approved by: Whit Bermudez MD, PhD on 09/18/2018 at 14:24
== END ==
PROVIDERS: Family Provider Family Medicine; PCP Family Medicine; Visit Provider Orthopaedic Surgery
DX: M51.36 Other intervertebral disc degeneration, lumbar region (principal); M48.061 Spinal stenosis, lumbar region without neurogenic claudication; M48.07 Spinal stenosis, lumbosacral region; Z98.1 Arthrodesis status
CPT/HCPCS: 72131

== ENCOUNTER 2019-01-18 14:30 | Outpatient (RCR) | payer OTHER, SELFPAY ==
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
--- NOTE | 2019-01-13 16:33 | PT.OPPOC ---
Current Diagnoses Sprain of ligaments of lumbar spine, subsequent encounter (01/13/19) Arthrodesis status (01/13/19) Provider Visit Care Team Role Provider Type Do Encarnacion DO Primary Care Provider Physician Specialty: Family Practice Address: [address] [place] [address], [id number] Email: [email or web address] Gerardo Russo MD Attending Provider Physician Specialty: Orthopedic Surgery Address: [address] [place] [address], [id number] Email: [email or web address] Plan Of Care PT-OP-T Assessment and Plan Start: 12/02/18 07:58 Freq: Status: Active Protocol: Document 01/13/19 09:30 AMB (Rec: 01/13/19 16:29 AMB [email or web address]) Physical Therapy Assessment Goals Five Impairment ROM Mcfp Goal (LTG) Pt to demo at least 60 degrees of pain-free lumbar flexion AROM so that patient is able to bend over to 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 LTG Duration 6 weeks Four Impairment HEP Short Term Goal (STG) Pt to become independent with an appropriate HEP to maximize rehab potential outside of formal therapy sessions. STG Duration PARTIALLY MET Three Impairment Hip Weakness Instrumentation Engineer Goal (LTG) Bilateral hip extension and abduction to improve to at least 4+/5 bilaterally. LTG Duration 6 weeks Two Impairment Pain Instrumentation Engineer Goal (LTG) Pt to report return to fishing /crabbing with <5/10 low back pain, demonstrating improved activity tolerance and reduction in pain intensity. Intermittent LTG Duration 6 weeks Assessment Summary Assessment Pt continues to notice stiffness in his back, mostly on the left. Feels that stretches are helpful, but pain can increase to 10/10 if he walks too much. Physical Therapy Plan Frequency and Duration Frequency of Treatment 2x/Week Duration of Treatment 2 weeks Plan of Care Start Date 01/13/19 Plan of Care End Date 01/27/19 Therapeutic Interventions Therapeutic Interventions Home Exercise Program Joint Mobilizations Manual Therapy Patient/Caregiver Education Self-Care/Home Management Soft Tissue Mobilization Taping Therapeutic Activities Therapeutic Exercises Modalities Cold Pack/Ice Massage Electric Stimulation Hot Packs Traction- Mechanical Ultrasound Next Visit Focus/Plan Next Note Type Discharge Summary Next Visit Plan At end of insurance authorization next visit Plan of Care Dates Plan of Care Start Date 01/13/19 Plan of Care End Date 01/27/19 Please Sign and Return: I have reviewed this Plan of Care and certify that the skilled therapy services above are required to meet the patient?s needs. Physician Signature Date Printed Name and Credentials Clinical Instructor Signature Printed Name and Credentials
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
== END 2019-02-12 12:01 | disposition home or self-care (01) ==
LOC: PHYS 14:30
PROVIDERS: PCP Family Medicine; Visit Provider Orthopaedic Surgery
DX: Z98.1 Arthrodesis status (principal); S33.5XXD Sprain of ligaments of lumbar spine, subsequent encounter
CPT/HCPCS: 97110; 97140; 97161; 97535

== ENCOUNTER → 2019-02-24 06:49 | Outpatient (CLI) | payer OTHER, SELFPAY ==
[2019-02-24 07:49] LABS: Appearance Urine UA CLEAR; Bilirubin Urine UA NEGATIVE (NEGATIVE); Color Urine UA YELLOW; Glucose Urine UA NEGATIVE (Negative); Ketones Urine UA NEGATIVE (NEGATIVE); Leukocyte Esterase Urine UA NEGATIVE (NEGATIVE); Nitrite Urine UA NEGATIVE (Negative); Occult Blood Urine UA NEGATIVE (Negative); Protein Urine UA NEGATIVE (Negative); Urobilinogen Urine UA 0.2 E.U./dL (0.2); pH Urine UA 7.5 (4.5-8.0)
[2019-02-24 07:56] LABS: Add Manual Diff / Slide Review NO; Basophils Absolute Auto 0 /uL (0-100); Basophils Percent Auto 0.4 % (0-2); Eosinophils Absolute Auto 400 /uL (0-450); Eosinophils Percent Auto 5.7 % (2-4); Hematocrit 40.6 % (41-53); Hemoglobin 14.1 g/dL (13.5-17.5); Lymphocytes Absolute Auto 2700 /uL (1100-4500); Mean Corpuscular HGB Conc 34.7 % (30-36); Mean Corpuscular Hemoglobin 32.3 PG (26-34); Monocytes Absolute Auto 700 /uL (0-900); Monocytes Percent Auto 10.1 % (3-14); Neutrophils Absolute Auto 3300 /uL (1500-7000); Neutrophils Percent Auto 45.8 % (50-75); Platelet Count 268 X10^3/uL (150-400); Red Blood Cell Count 4.37 X10^6/uL (4.5-5.9); Red Cell Distribution Width 13.2 % (11.6-14.8); White Blood Cell Count 7.2 X10^3/uL (4.5-11.0)
[2019-02-24 08:05] LABS: Alanine Aminotransferase 26 IU/L (21-72); Albumin 4.4 g/dL (3.5-5.0); Albumin Globulin Ratio 1.6 (1.0-2.8); Alkaline Phosphatase 52 U/L (38-126); Aspartate Aminotransferase 25 IU/L (17-59); Bilirubin Total 0.7 mg/dL (0.2-1.3); Blood Urea Nitrogen 15 mg/dL (9-20); Calcium 9.2 mg/dL (8.4-10.2); Carbon Dioxide 27 mmol/L (22-32); Chloride 104 mmol/L (98-107); Cholesterol 152 mg/dL (140-199); Estimated Glomerular Filt Rate > 60.0 mL/min (>60); Globulin 2.7 g/dL (1.7-4.1); Glucose 95 mg/dL (80-110); HDL Cholesterol 36 mg/dL (40-60); HEMOLYSIS < 15 (0-50); LDL Cholesterol Calculated 73 mg/dL (<100); Potassium 3.9 mmol/L (3.4-5.1); Sodium 141 mmol/L (137-145); Total Protein 7.1 g/dL (6.3-8.2); Triglycerides 213 mg/dL (35-150)
[2019-02-24 08:31] LABS: Prostate Specific Antigen Scrn 0.761 ng/mL (0.1-4.0)
[2019-02-24 08:47] LABS: Thyroid Stimulating Hormone 1.23 uIU/mL (0.47-4.68)
== END ==
PROVIDERS: PCP Family Medicine; Visit Provider Family Medicine
DX: E78.00 Pure hypercholesterolemia, unspecified (principal); I10 Essential (primary) hypertension; Z12.5 Encounter for screening for malignant neoplasm of prostate; Z51.81 Encounter for therapeutic drug level monitoring
CPT/HCPCS: 36415; 80053; 80061; 81003; 84443; 85025; G0103

== ENCOUNTER 2019-03-12 06:24 | Day surgery (SDC) | payer OTHER, SELFPAY ==
[2019-03-12] VITALS (8 sets, daily range): BP systolic 100–118; BP diastolic 51–60; PULSE 50–61; RESP 12–20; TEMP 36.2–37.1; O2SAT 95–98; BMI 25.9
--- NOTE | 2019-03-12 | PATH_ITS ---
[facility] Accession Number: [id number] . 01 Material submitted: . PART A: colon - ASCENDING COLON POLYP NEAR CECUM PART B: body - POLYP AT 25 . 02 Diagnosis: A. Ascending Colon, Near Cecum, Polyp: Tubular adenoma. . B. Colon at 25 cm, Polyp: Colonic mucosa with no diagnostic abnormality, consistent with polypoid redundancy. Negative for serrated lesion, dysplasia or malignancy. MRV/03/15/2019 . 02 Electronically signed: . Fransico Lau MD, PhD, Pathologist NPI- [id number] . 01 Gross description: . Part A: ASCENDING COLON POLYP NEAR CECUM: Received in formalin are 2 fragment(s) of persaud, soft tissue measuring 0.2 x 0.2 x 0.2 cm to 0.3 x 0.2 x 0.2 cm which is entirely submitted and submitted entirely in 1 cassette(s) Part B: POLYP AT 25: Received in formalin are 4 fragment(s) of persaud, soft tissue measuring 0.1 x 0.1 x 0.1 cm to 0.3 x 0.2 x 0.2 cm which is entirely submitted and submitted entirely in 1 cassette(s) /DMC /DMC . 02 Pathologist provided ICD-10: D12.2, K63.5 . 02 CPT . 183793, [id number] Performed at: 01 [facility] [address], [place], [place] [id number] MD Jourdan Weiss MD Phone: [phone] Performed at: 02 [facility] [address] , [place], [place] [id number] MD Dorota Ryan MD Phone: [phone]
[2019-03-12] MEDS: SODIUM CHLORIDE 0.9% 1,000 ML 200 ML IV (07:31)
--- NOTE | 2019-03-12 07:53 | PM.HP.1 ---
History of Present Illness Date Patient Seen: 03/12/19 Time Patient Seen: 07:47 Chief complaint: [id number] Narrative: The patient is a gentleman here for screening colonoscopy. Last exam was 5 years ago. He has a history of polyps. Patient History Medical History Acute back pain (Acute) Former smoker (Acute) Impaired vision (Acute) Pre-diabetes (Acute) Carpal tunnel syndrome (Acute 1996) Chronic back pain (Chronic 2014) GERD (gastroesophageal reflux disease) (Chronic Unknown) Hyperlipemia (Chronic Unknown) Hypertension (Chronic Unknown) Lumbar disc disease (Chronic 2014) Spinal stenosis (Chronic Unknown) Anemia (Resolved 1983) Ankle pain (Resolved 2014) Plantar warts (Resolved 1981) Shoulder pain (Resolved 2000) Skin cancer (Resolved 1994) Surgical History H/O left knee surgery (Resolved 2008) H/O right knee surgery (Resolved ~1987) History of carpal tunnel release (Resolved ~1997) History of lumbar fusion (Resolved ~08/2017) Hx of elbow surgery (Resolved 1975) Hx of laminectomy (Resolved ~08/2017) Hx of rotator cuff surgery (Resolved ~1997) Family History (Updated 02/06/18 @ 13:34 by Anita Ibrahim LPN) Father No problems noted. Mother Cancer Sister Heart problem Social History household members: none Smoking Status: Former smoker (quit age 51) Tobacco: How many years used: 25 alcohol intake: current (3 beers per day) Family & Social History Family History Father No problems noted. Mother Cancer Sister Heart problem Social History: household members none Tobacco & Substance use: Smoking Status Former smoker alcohol intake current Meds Home Medications Medication Instructions Recorded Confirmed Type aspirin 81 mg PO QDAY #0 05/01/16 03/12/19 History clobetasol-emollient 0.05 % 1 applictn TOP .PRN #15 gram 02/19/18 03/12/19 Rx topical cream fluocinonide 0.05 % topical cream 1 applictn TOPICAL PRN PRN #15 gram 02/19/18 03/12/19 Rx atorvastatin 40 mg tablet 40 mg PO HS #90 tab 01/27/19 03/12/19 Rx desonide 0.05 % topical cream 1 applictn TOPICAL BID PRN #15 gram 01/27/19 03/12/19 Rx ketoconazole 2 % shampoo 1 applictn TOPICAL QDAY #120 ml 01/27/19 03/12/19 Rx omeprazole 20 mg capsule,delayed 20 mg PO QDAY #90 cap 01/27/19 03/12/19 Rx release valsartan 320 1 tab PO QDAY #90 tab 01/27/19 03/12/19 Rx mg-hydrochlorothiazide 25 mg tablet acetaminophen [Tylenol Extra 1,000 mg PO Q6H PRN 03/12/19 03/12/19 History Strength] hydrocodone-acetaminophen 0.5 - 1 tab PO Q4-6H PRN 03/12/19 03/12/19 History Allergies Allergy/AdvReac Type Severity Reaction Status Date / Time No Known Drug Allergies Allergy Verified 03/12/19 07:12 Review of Systems Review of Systems All systems reviewed & are unremarkable except as noted in HPI and below Hematologic/Lymphatic Comments: Chronically anemic Exam Vital Signs (past 8 hours): - 03/12/19 07:23 Temperature 97.1 F L Pulse Rate 56 L Respiratory Rate 15 Blood Pressure 114/59 L Pulse Oximetry 97 Oxygen Delivery Method Room Air Narrative Exam Narrative: Pleasant cooperative patient no apparent distress. Lungs are clear to auscultation. No rales or rhonchi. Heart regular rate and rhythm no murmur gallop. Abdomen is soft nontender without mass. No obvious hernias. Patient is alert and oriented x3. Assessment & Plan Assessment & Plan narrative: The patient for a screening colonoscopy. I have discussed the procedure with them. Risks of bleeding, perforation which would necessitate major operation, failure to find remove all lesions, the potential tattoo were all discussed. All questions were answered. They wished to proceed.
--- NOTE | 2019-03-12 07:58 | PM.PREOP ---
Pre-operative Note Interval Note History & Physical reviewed/Exam performed by Physician: Yes Changes to H&P: No ASA Class (for procedural sedation): II
--- NOTE | 2019-03-12 08:00 | SUR.OPER ---
GLASSES IN LABELED BAG TO PACU WITH PATIENT
--- NOTE | 2019-03-12 08:03 | SUR.OPER ---
PHYSICIAN LOCKED OUT OF COMPUTER
[2019-03-12] MEDS: MIDAZOLAM 5 MG/5 ML VIAL IV (08:22)
[2019-03-12] MEDS: fentaNYL 250 MCG/5 ML INJ IV (08:22)
--- NOTE | 2019-03-12 08:46 | PM.OP.ENDO ---
Operative Date/Time/Diagnoses Date of procedure: 03/12/19 Time of procedure: 08:46 Pre-op diagnosis: Screening exam. History of polyps. Last exam 5 years ago. Post-op diagnosis: same (Diverticulosis throughout the colon. Internal hemorrhoids. Mild prostate enlargement. Two small polyps) Procedure & Clinicians Study performed: Colonoscopy with cold biopsy Same procedure as scheduled: Yes Indications: Screening Surgeon: Mendel Layne Procedure Notes SCOAP/Timeout: Performed Procedure in detail: The patient was placed in the left lateral decubitus position and underwent IV sedation directed by the surgeon consisting of fentanyl and Versed. Digital exam was remarkable for mild enlargement of his prostate. No palpable masses. The scope was inserted and advanced through the rectum into the sigmoid, descending, transverse, and ascending colon. Numerous diverticula were seen. There was scattered throughout the colon. Heavy is concentration was in the sigmoid colon. The cecum was reached identified by the ileocecal valve and the appendiceal opening. The ileocecal valve was briefly cannulated. The terminal ileum was normal in appearance. The scope was gradually brought out. Two Polyps were found. One was at the ascending colon near the cecum and the 2nd was located at 25 cm. Both were small and appeared to be benign.. The scope ultimately was retroflexed in the rectum. The appearance was remarkable for hemorrhoids without ulceration.. The scope was removed and the patient tolerated the procedure well. Prep was very good. Scope withdrawal time: 12.5 min(excludes bx time) Sedation minutes: 33 Findings: diverticulosis (Truong colonic), internal hemorrhoids and polyp Recommendations: Colonscopy in 5 years Follow up: as needed Disposition: PACU
== END 2019-03-12 09:47 | disposition home or self-care (01) ==
PROVIDERS: PCP Family Medicine; Visit Provider Specialist
PROC: 0DJD8ZZ Inspection of Lower Intestinal Tract, Via Natural or Artificial Opening Endoscopic (ICD-10-PCS; CPT 45378; principal; 2019-03-12 07:45)
DX: Z86.010 Personal history of colon polyps (principal); K64.8 Other hemorrhoids; K57.30 Diverticulosis of large intestine without perforation or abscess without bleeding; N40.0 Benign prostatic hyperplasia without lower urinary tract symptoms; R73.03 Prediabetes; I10 Essential (primary) hypertension; E78.5 Hyperlipidemia, unspecified; D12.2 Benign neoplasm of ascending colon; K63.5 Polyp of colon
CPT/HCPCS: 45380; 99152; 99153; J2250; J3010

== ENCOUNTER → 2019-07-07 16:00 | Outpatient (CLI) | payer OTHER, SELFPAY ==
--- NOTE | 2019-07-07 | DI.MRI.S_ITS ---
PROCEDURE: MR SHOULDER LT WO CON INDICATIONS: Strain of muscle(s) and tendon(s) of the rotator c TECHNIQUE: Noncontrast oblique coronal T2 fast spin echo with fat saturation, oblique sagittal T1 spin echo and T2 fast spin echo with fat saturation, axial T1 spin echo and T2 fast spin echo with fat saturation through the shoulder. COMPARISON: None. FINDINGS: Image quality: Diagnostic. Rotator cuff: No definite full-thickness tear of the rotator cuff is identified. There is prominent thickening and increased signal evident involving the supraspinatus and infraspinatus tendons with low to moderate grade partial-thickness tearing along the mid substance of the tendon footprint. High grade articular surface partial thickness tearing is present involving the subscapularis tendon with mild associated tendinopathy. A tear of the transverse ligament is present given dislocation of the biceps tendon from the bicipital groove. The teres minor tendon is intact. Subscapularis muscle atrophy is present. No additional areas of significant muscle atrophy are appreciated. Bones and bursae: There is no acute fracture, dislocation, or suspicious osseous lesion. Mild degenerative changes of the glenohumeral joint are present. There is a small glenohumeral joint effusion. Moderate degenerative changes of the acromioclavicular joint are present. There is a small to moderate amount of fluid contained within a thickened subacromial subdeltoid bursa. Capsule and soft tissues: Evaluation of the labrum and the glenohumeral ligaments is suboptimal without contrast. However, there is an anterosuperior labral tear identified that extends from the 10 o'clock position to at least the 12 o'clock position. Additional tearing to the posterosuperior labrum probably is present. The lung head of the biceps tendon is dislocated along the anteromedial aspect of the bicipital groove related to a full-thickness tear of the transverse ligament. Increased signal involving the intra-articular portion of the tendon is present. No acute injuries are evident involving the glenohumeral ligaments. Slight laxity and heterogeneity of the inferior glenohumeral ligament could potentially be related to previous injury. IMPRESSION: 1. High grade articular surface partial thickness tearing of the subscapularis tendon with corresponding tendinopathy and muscle atrophy. 2. Transverse ligament tear with dislocation of the biceps tendon from the bicipital groove. 3. Low to moderate grade partial-thickness tearing of the supraspinatus and infraspinatus footprint with associated tendinopathy. 4. There is at least a small anterosuperior labral tear. 5. Moderate tendinopathy involving the intra-articular portion of the biceps tendon. 6. [id number]-[id number] degenerative changes of the shoulder joints, as described. 7. Fluid within the subacromial subdeltoid bursa and may be related to bursitis. Please correlate clinically. Dictated by: Yariel Montana M.D. on 07/07/2019 at 16:52 Approved by: Yariel Montana M.D. on 07/07/2019 at 17:00
== END ==
PROVIDERS: Family Provider Family Medicine; PCP Family Medicine; Visit Provider Preventive Medicine Occupational Medicine
DX: M75.112 Incomplete rotator cuff tear or rupture of left shoulder, not specified as traumatic (principal); S43.432A Superior glenoid labrum lesion of left shoulder, initial encounter; S46.212A Strain of muscle, fascia and tendon of other parts of biceps, left arm, initial encounter
CPT/HCPCS: 73221

== ENCOUNTER → 2019-08-09 07:08 | Outpatient (CLI) | payer OTHER, SELFPAY ==
[2019-08-09 07:52] LABS: Add Manual Diff / Slide Review NO; Basophils Absolute Auto 100 /uL (0-100); Basophils Percent Auto 0.9 % (0-2); Eosinophils Absolute Auto 500 /uL (0-450); Eosinophils Percent Auto 5.6 % (2-4); Hematocrit 39.1 % (41-53); Hemoglobin 13.5 g/dL (13.5-17.5); Lymphocytes Absolute Auto 2800 /uL (1100-4500); Lymphocytes Percent Auto 34.4 % (25-40); Mean Corpuscular HGB Conc 34.4 % (30-36); Mean Corpuscular Hemoglobin 31.8 PG (26-34); Mean Corpuscular Volume 92.5 fL (80-100); Monocytes Absolute Auto 900 /uL (0-900); Monocytes Percent Auto 10.8 % (3-14); Neutrophils Absolute Auto 4000 /uL (1500-7000); Neutrophils Percent Auto 48.3 % (50-75); Platelet Count 264 X10^3/uL (150-400); Red Blood Cell Count 4.22 X10^6/uL (4.5-5.9); Red Cell Distribution Width 12.5 % (11.6-14.8); White Blood Cell Count 8.2 X10^3/uL (4.5-11.0)
[2019-08-09 08:00] LABS: Alanine Aminotransferase 21 IU/L (<50); Albumin 4.1 g/dL (3.5-5.0); Albumin Globulin Ratio 1.6 (1.0-2.8); Alkaline Phosphatase 57 U/L (38-126); Aspartate Aminotransferase 29 IU/L (17-59); BUN Creatinine Ratio 18.3 (6-22); Bilirubin Total 0.6 mg/dL (0.2-1.3); Blood Urea Nitrogen 11 mg/dL (9-20); Calcium 8.9 mg/dL (8.4-10.2); Carbon Dioxide 27 mmol/L (22-32); Chloride 105 mmol/L (98-107); Cholesterol 141 mg/dL (140-199); Estimated Glomerular Filt Rate > 60.0 mL/min (>60); Globulin 2.6 g/dL (1.7-4.1); Glucose 104 mg/dL (80-110); HDL Cholesterol 32 mg/dL (40-60); HEMOLYSIS < 15 (0-50); LDL Cholesterol Calculated 89 mg/dL (<100); Potassium 3.6 mmol/L (3.4-5.1); Sodium 140 mmol/L (137-145); Total Protein 6.7 g/dL (6.3-8.2); Triglycerides 99 mg/dL (35-150)
[2019-08-09 08:30] LABS: Prostate Specific Antigen Scrn 0.635 ng/mL (0.1-4.0)
[2019-08-09 14:25] LABS: Appearance Urine UA CLEAR; Bilirubin Urine UA NEGATIVE (NEGATIVE); Color Urine UA YELLOW; Glucose Urine UA NEGATIVE (Negative); Ketones Urine UA NEGATIVE (NEGATIVE); Leukocyte Esterase Urine UA NEGATIVE (NEGATIVE); Nitrite Urine UA NEGATIVE (Negative); Occult Blood Urine UA TRACE-LYSED (Negative); Protein Urine UA NEGATIVE (Negative); Urobilinogen Urine UA 0.2 E.U./dL (0.2)
== END ==
PROVIDERS: PCP Family Medicine; Visit Provider Family Medicine
DX: E78.00 Pure hypercholesterolemia, unspecified (principal); I10 Essential (primary) hypertension; Z51.81 Encounter for therapeutic drug level monitoring; Z12.5 Encounter for screening for malignant neoplasm of prostate
CPT/HCPCS: 36415; 80053; 80061; 81003; 84443; 85025; G0103

== ENCOUNTER 2019-11-08 14:30 | Outpatient (RCR) | payer OTHER, SELFPAY ==
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
--- NOTE | 2020-05-09 11:12 | PT.OPDS ---
Current Diagnoses Strain of muscle(s) and tendon(s) of the rotator cuff of left shoulder, initial encounter (11/08/19) Strain of muscle, fascia and tendon of long head of biceps, unspecified arm, initial encounter (11/08/19) Visit Care Team Role Provider Type Jourdan Bob MD Attending Provider Physician Primary Care Provider Referring Provider Specialty: Orthopedic Surgery Address: [address] [place] [address], [id number] Email: [email or web address] Visit Number Visit Number 01/27 Discharge Summary PT-OP-T Assessment and Plan Start: 10/21/19 08:04 Freq: Status: Active Protocol: Document 05/09/20 11:12 (Rec: 05/09/20 11:12 [email or web address]) Physical Therapy Plan Discharge Physical Therapy Discharge Reasons No Longer Attending PT Discharge Comments Patient did not return call after clinic re-opening> 30+ days. pt also does not have ins authorization. DC from PT today
== END 2020-06-06 10:56 ==
LOC: PHYS 14:30
PROVIDERS: PCP Orthopaedic Surgery; Referring Provider Orthopaedic Surgery; Visit Provider Orthopaedic Surgery
DX: S46.119A Strain of muscle, fascia and tendon of long head of biceps, unspecified arm, initial encounter (principal); S46.012A Strain of muscle(s) and tendon(s) of the rotator cuff of left shoulder, initial encounter
CPT/HCPCS: 97110; 97140; 97163

== ENCOUNTER → 2020-02-23 07:25 | Outpatient (CLI) | payer OTHER, SELFPAY ==
[2020-02-23 08:09] LABS: Add Manual Diff / Slide Review NO; Basophils Absolute Auto 0 /uL (0-100); Basophils Percent Auto 0.6 % (0-2); Eosinophils Absolute Auto 400 /uL (0-450); Eosinophils Percent Auto 4.4 % (2-4); Hematocrit 41.2 % (41-53); Hemoglobin 14.1 g/dL (13.5-17.5); Lymphocytes Absolute Auto 3200 /uL (1100-4500); Mean Corpuscular HGB Conc 34.3 % (30-36); Mean Corpuscular Hemoglobin 32.1 PG (26-34); Mean Corpuscular Volume 93.6 fL (80-100); Monocytes Absolute Auto 900 /uL (0-900); Neutrophils Absolute Auto 4000 /uL (1500-7000); Platelet Count 258 X10^3/uL (150-400); White Blood Cell Count 8.5 X10^3/uL (4.5-11.0)
[2020-02-23 08:18] LABS: Alanine Aminotransferase 21 IU/L (<50); Albumin 4.5 g/dL (3.5-5.0); Albumin Globulin Ratio 1.7 (1.0-2.8); Alkaline Phosphatase 60 U/L (38-126); Aspartate Aminotransferase 32 IU/L (17-59); BUN Creatinine Ratio 20.9 (6-22); Bilirubin Total 0.7 mg/dL (0.2-1.3); Blood Urea Nitrogen 14 mg/dL (9-20); Calcium 9.4 mg/dL (8.4-10.2); Carbon Dioxide 29 mmol/L (22-32); Chloride 102 mmol/L (98-107); Cholesterol 161 mg/dL (140-199); Estimated Glomerular Filt Rate > 60.0 mL/min (>60); Globulin 2.6 g/dL (1.7-4.1); Glucose 96 mg/dL (80-110); HDL Cholesterol 34 mg/dL (40-60); HEMOLYSIS < 15 (0-50); LDL Cholesterol Calculated 87 mg/dL (<100); Potassium 3.9 mmol/L (3.4-5.1); Sodium 136 mmol/L (137-145); Total Protein 7.1 g/dL (6.3-8.2); Triglycerides 199 mg/dL (35-150)
[2020-02-23 08:34] LABS: Vitamin D 25 Hydroxy (D3) 91.1 ng/mL (30.0-100.0)
[2020-02-23 08:47] LABS: Prostate Specific Antigen Scrn 1.67 ng/mL (0.1-4.0)
[2020-02-24 11:23] LABS: SARS CoV19 IgG Negative (Negative)
[2020-02-24 14:12] LABS: SARS-CoV19- IgM Negative (Negative)
== END ==
PROVIDERS: Referring Provider Family Medicine; Visit Provider Family Medicine
DX: Z12.5 Encounter for screening for malignant neoplasm of prostate (principal); E78.00 Pure hypercholesterolemia, unspecified; I10 Essential (primary) hypertension; R42 Dizziness and giddiness; R55 Syncope and collapse; Z20.9 Contact with and (suspected) exposure to unspecified communicable disease
CPT/HCPCS: 36415; 80053; 80061; 82306; 85025; 86769; G0103

== ENCOUNTER → 2020-09-15 11:03 | Outpatient (CLI) | payer MEDICARE, SELFPAY ==
[2020-09-15] MEDS: COVID-19 VACC #1, MRNA(MOD) 100 MCG/0.5 ML VIAL IM (11:08)
== END ==
PROVIDERS: Visit Provider Internal Medicine
DX: Z23 Encounter for immunization (principal)
CPT/HCPCS: 0011A; 91301

== ENCOUNTER → 2020-09-20 06:58 | Outpatient (CLI) | payer OTHER, SELFPAY ==
[2020-09-20 09:34] LABS: Add Manual Diff / Slide Review NO; Basophils Absolute Auto 0 /uL (0-100); Basophils Percent Auto 0.5 % (0-2); Eosinophils Absolute Auto 500 /uL (0-450); Eosinophils Percent Auto 7.1 % (2-4); Hematocrit 38.2 % (41-53); Hemoglobin 13.1 g/dL (13.5-17.5); Lymphocytes Absolute Auto 2800 /uL (1100-4500); Lymphocytes Percent Auto 39.4 % (25-40); Mean Corpuscular HGB Conc 34.2 % (30-36); Mean Corpuscular Hemoglobin 31.9 PG (26-34); Mean Corpuscular Volume 93.3 fL (80-100); Monocytes Absolute Auto 900 /uL (0-900); Monocytes Percent Auto 12.1 % (3-14); Neutrophils Absolute Auto 2900 /uL (1500-7000); Neutrophils Percent Auto 40.9 % (50-75); Platelet Count 266 X10^3/uL (150-400); Red Cell Distribution Width 12.7 % (11.6-14.8); White Blood Cell Count 7.2 X10^3/uL (4.5-11.0)
[2020-09-20 09:46] LABS: Alanine Aminotransferase 22 IU/L (<50); Albumin 4.2 g/dL (3.5-5.0); Albumin Globulin Ratio 1.6 (1.0-2.8); Alkaline Phosphatase 51 U/L (38-126); Aspartate Aminotransferase 29 IU/L (17-59); BUN Creatinine Ratio 26.9 (6-22); Bilirubin Total 0.3 mg/dL (0.2-1.3); Blood Urea Nitrogen 18 mg/dL (9-20); Calcium 9.2 mg/dL (8.4-10.2); Carbon Dioxide 28 mmol/L (22-32); Chloride 104 mmol/L (98-107); Cholesterol 143 mg/dL (140-199); Estimated Glomerular Filt Rate > 60.0 mL/min (>60); Globulin 2.7 g/dL (1.7-4.1); Glucose 95 mg/dL (80-110); HDL Cholesterol 37 mg/dL (40-60); HEMOLYSIS < 15 (0-50); LDL Cholesterol Calculated 84 mg/dL (<100); Potassium 3.9 mmol/L (3.4-5.1); Sodium 140 mmol/L (137-145); Total Protein 6.9 g/dL (6.3-8.2); Triglycerides 110 mg/dL (35-150)
[2020-09-20 10:17] LABS: Prostate Specific Antigen Scrn 0.469 ng/mL (0.1-4.0)
== END ==
PROVIDERS: PCP Family Medicine; Referring Provider Family Medicine; Visit Provider Family Medicine
DX: E78.00 Pure hypercholesterolemia, unspecified (principal); I10 Essential (primary) hypertension; Z12.5 Encounter for screening for malignant neoplasm of prostate
CPT/HCPCS: 36415; 80053; 80061; 85025; G0103

== ENCOUNTER → 2020-10-13 11:00 | Outpatient (CLI) | payer MEDICARE, SELFPAY ==
[2020-10-13] MEDS: COVID-19 VACC #2, MRNA(MOD) 100 MCG/0.5 ML VIAL IM (11:04)
== END ==
PROVIDERS: PCP Family Medicine; Visit Provider Internal Medicine
DX: Z23 Encounter for immunization (principal)
CPT/HCPCS: 0012A; 91301

== ENCOUNTER → 2021-04-27 06:41 | Outpatient (CLI) | payer OTHER, SELFPAY ==
[2021-04-27 08:22] LABS: Add Manual Diff / Slide Review NO; Basophils Absolute Auto 0 /uL (0-100); Basophils Percent Auto 0.4 % (0-2); Eosinophils Absolute Auto 300 /uL (0-450); Eosinophils Percent Auto 3.8 % (2-4); Hematocrit 37.6 % (41-53); Hemoglobin 12.7 g/dL (13.5-17.5); Lymphocytes Absolute Auto 2100 /uL (1100-4500); Lymphocytes Percent Auto 28.2 % (25-40); Mean Corpuscular HGB Conc 33.6 % (30-36); Mean Corpuscular Hemoglobin 31.6 PG (26-34); Mean Corpuscular Volume 94.1 fL (80-100); Monocytes Absolute Auto 900 /uL (0-900); Monocytes Percent Auto 11.8 % (3-14); Neutrophils Absolute Auto 4100 /uL (1500-7000); Neutrophils Percent Auto 55.8 % (50-75); Platelet Count 266 X10^3/uL (150-400); White Blood Cell Count 7.3 X10^3/uL (4.5-11.0)
[2021-04-27 08:46] LABS: Alanine Aminotransferase 27 IU/L (<50); Albumin 3.9 g/dL (3.5-5.0); Albumin Globulin Ratio 1.6 (1.0-2.8); Alkaline Phosphatase 78 U/L (38-126); Aspartate Aminotransferase 37 IU/L (17-59); BUN Creatinine Ratio 20.3 (6-22); Bilirubin Total 0.7 mg/dL (0.2-1.3); Blood Urea Nitrogen 13 mg/dL (9-20); Calcium 8.9 mg/dL (8.4-10.2); Carbon Dioxide 25 mmol/L (22-32); Chloride 104 mmol/L (98-107); Cholesterol 109 mg/dL (140-199); Estimated Glomerular Filt Rate > 60.0 mL/min (>60); Globulin 2.5 g/dL (1.7-4.1); Glucose 85 mg/dL (80-110); HDL Cholesterol 41 mg/dL (40-60); HEMOLYSIS < 15 (0-50); LDL Cholesterol Calculated 49 mg/dL (<100); Potassium 4.2 mmol/L (3.4-5.1); Sodium 135 mmol/L (137-145); Total Protein 6.4 g/dL (6.3-8.2); Triglycerides 96 mg/dL (35-150)
== END ==
PROVIDERS: PCP Family Medicine; Referring Provider Family Medicine; Visit Provider Family Medicine
DX: E78.00 Pure hypercholesterolemia, unspecified (principal); I10 Essential (primary) hypertension
CPT/HCPCS: 36415; 80053; 80061; 85025

== ENCOUNTER → 2021-06-29 09:02 | Outpatient (CLI) | payer MEDICARE, SELFPAY ==
[2021-06-29] MEDS: COVID-19 VACC #3, MRNA(MOD) 50 MCG/0.25 ML VIAL IM (09:08)
== END ==
PROVIDERS: PCP Family Medicine; Visit Provider Internal Medicine
DX: Z23 Encounter for immunization (principal)
CPT/HCPCS: 0013A; 91301

== ENCOUNTER → 2021-12-28 15:34 | Outpatient (CLI) | payer OTHER, SELFPAY ==
--- NOTE | 2021-12-28 | DI.MRI.S_ITS ---
PROCEDURE: MR LUMBAR SPINE WO CON INDICATIONS: Spinal stenosis, lumbar region with neurogenic claudication TECHNIQUE: Noncontrast sagittal T1 spin echo and T2 fast echo, sagittal STIR, and T2 fast spin echo through the lumbar spine. In cases with scoliosis, additional coronal T2 fast spin echo may be performed. COMPARISON: [facility], CT, CT LUMBAR SPINE WO CON, 09/18/2018, 11:46. [facility] [place], CR, XR LUMBAR SPINE 2 OR 3 VIEWS, 11/20/2021, 9:02. [facility], MR, L-SPINE WITHOUT CONTRAST, 05/28/2017, 9:06. FINDINGS: Image quality: Excellent. Alignment and Curvature: Transitional anatomy with left naveen sacralization of L5 and vestigial 12th ribs. Mild scoliotic curvature with convexity to the left. Mild grade 1 anterolisthesis of L3 on L4. Since the postsurgical CT, retrolisthesis of L1 on L2 has developed measuring 7 mm at the left aspect at 11 mm at the right aspect. There has also developed lateral slippage between L1 and L2, measuring 12 mm. Left posterior lateral verna and pedicle screw fixation of L2 through L5 with left hemilaminectomy at L3-L4 and L4-L5 and posterior laminectomy at L5-S1. Bone Marrow: Marrow is of normal overall signal. No acute vertebral body compression fractures. Spinal Cord: Conus medullaris terminates at the T12-L1 level. Visualized cord demonstrates normal signal and size. Paraspinous Soft Tissues: No paravertebral masses. T11-T12: No canal stenosis or foraminal stenosis. T12-L1: Mild disc bulge. Very mild facet hypertrophy. No canal stenosis or foraminal stenosis. L1-L2: Interval development of grade 1 retrolisthesis of L1 on L2. It measures 7 mm at the left aspect and 11 mm at the right aspect. Left pedicle screw. There is moderate canal stenosis. There is marked right foraminal stenosis with right foraminal nerve root impingement. L2-L3: Left pedicle screw. Interbody fusion. Borderline canal stenosis. [id number]-ig-[id number] right foraminal stenosis. L3-L4: Left pedicle screw. Right facet hypertrophy. Moderate to severe narrowing of the right naveen canal. Frac-be-ztrhabve right foraminal narrowing. Mild left foraminal narrowing. Left hemilaminectomy. L4-L5: Left pedicle screw. Left hemilaminectomy. Mild canal stenosis. Mild right foraminal narrowing. Moderate to severe left foraminal narrowing with a degree of left foraminal L4 nerve root impingement. L5-S1: Partial sacralization. No canal stenosis. [id number]-bl-[id number] right foraminal stenosis. IMPRESSION: 1. Please note the numbering system and the levels of previous surgery if planning future surgery. There is partial sacralization of L5 and vestigial 12th ribs. 2. Since the postsurgical CT, grade 1 retrolisthesis of L1 and L2 has developed. There has also developed slippage laterally between L1 and L2 so that the L1 vertebra is to the right relative to L2. This results in obliteration of the right foramen and obliteration of the right L1 nerve root. 3. There is moderate canal stenosis at L1-L2, borderline canal stenosis at L2-L3, and moderate to severe narrowing of the right naveen canal at L3-L4. There is mild canal stenosis at L4-L5. 4. Multilevel foraminal narrowing as described above. Dictated by: Hilario Oglesby M.D. on 12/28/2021 at 17:15 Approved by: Hilario Oglesby M.D. on 12/28/2021 at 17:34
== END ==
PROVIDERS: PCP Family Medicine; Referring Provider Preventive Medicine Occupational Medicine; Visit Provider Preventive Medicine Occupational Medicine
DX: M48.062 Spinal stenosis, lumbar region with neurogenic claudication (principal); M43.27 Fusion of spine, lumbosacral region; M43.16 Spondylolisthesis, lumbar region
CPT/HCPCS: 72148

== ENCOUNTER → 2022-03-19 06:57 | Outpatient (CLI) | payer OTHER, SELFPAY ==
[2022-03-19 09:11] LABS: Add Manual Diff / Slide Review NO; Basophils Absolute Auto 0 /uL (0-100); Basophils Percent Auto 0.4 % (0-2); Eosinophils Absolute Auto 300 /uL (0-450); Eosinophils Percent Auto 5.1 % (2-4); Hemoglobin 12.7 g/dL (13.5-17.5); Lymphocytes Absolute Auto 2000 /uL (1100-4500); Lymphocytes Percent Auto 35.5 % (25-40); Mean Corpuscular HGB Conc 34.4 % (30-36); Mean Corpuscular Hemoglobin 31.6 PG (26-34); Mean Corpuscular Volume 91.9 fL (80-100); Monocytes Absolute Auto 600 /uL (0-900); Neutrophils Absolute Auto 2700 /uL (1500-7000); Platelet Count 272 X10^3/uL (150-400); Red Blood Cell Count 4.03 X10^6/uL (4.5-5.9); White Blood Cell Count 5.6 X10^3/uL (4.5-11.0)
[2022-03-19 09:32] LABS: Alanine Aminotransferase 17 IU/L (<50); Albumin 3.9 g/dL (3.5-5.0); Albumin Globulin Ratio 1.6 (1.0-2.8); Alkaline Phosphatase 70 U/L (38-126); Aspartate Aminotransferase 25 IU/L (17-59); BUN Creatinine Ratio 17.3 (6-22); Bilirubin Total 0.4 mg/dL (0.2-1.3); Blood Urea Nitrogen 14 mg/dL (9-20); Calcium 8.6 mg/dL (8.4-10.2); Carbon Dioxide 25 mmol/L (22-32); Chloride 103 mmol/L (98-107); Cholesterol 147 mg/dL (140-199); Estimated Glomerular Filt Rate > 60 mL/min (>60); Globulin 2.5 g/dL (1.7-4.1); Glucose 99 mg/dL (80-110); HDL Cholesterol 52 mg/dL (40-60); HEMOLYSIS < 15 (0-50); LDL Cholesterol Calculated 79 mg/dL (<100); Potassium 4.1 mmol/L (3.4-5.1); Sodium 136 mmol/L (137-145); Total Protein 6.4 g/dL (6.3-8.2); Triglycerides 79 mg/dL (35-150)
[2022-03-19 10:04] LABS: Prostate Specific Antigen Scrn 1.59 ng/mL (0.1-4.0)
[2022-03-25 05:44] LABS: Percent Free Testosterone 1.53 % (1.50-4.20); Testosterone Free 8.47 ng/dL (5.00-21.00); Testosterone Total 553.7 ng/dL (264.0-916.0)
== END ==
PROVIDERS: PCP Family Medicine; Referring Provider Family Medicine; Visit Provider Family Medicine
DX: E78.00 Pure hypercholesterolemia, unspecified (principal); Z12.5 Encounter for screening for malignant neoplasm of prostate; I10 Essential (primary) hypertension; Z87.891 Personal history of nicotine dependence; N52.9 Male erectile dysfunction, unspecified
CPT/HCPCS: 36415; 80053; 80061; 84402; 84403; 85025; G0103

== ENCOUNTER → 2022-11-28 10:19 | Outpatient (CLI) | payer OTHER, SELFPAY ==
--- NOTE | 2022-11-29 18:13 | DI.NM.S_ITS ---
DATE OF SERVICE: 11/28/2022 PROCEDURE: Exercise perfusion study INDICATIONS: 1. History of non ST-elevation IL, chest pain. 2. Hypertension. 3. Hyperlipidemia. RADIOPHARMACEUTICAL: 26.6 millicurie technetium-99m Myoview IV was injected at stress and 25.9 millicurie technetium-99m Myoview IV was injected at rest. CARDIAC STRESS: The patient underwent exercise perfusion study under the supervision of an attending staff. The patient walked on Taz protocol for 5 minutes and 42 seconds, achieved 99% of target heart rate with maximum heart rate 142 beats per minute. 7 METs of workload. Functional aerobic impairment positive 2%. Normal blood pressure response. Resting blood pressure 115/60 mmHg. Peak blood pressure 192/90 mmHg. Baseline rhythm was sinus with mild sinus bradycardia and repolarization changes. During stress, there was nonspecific upsloping ST depression in inferolateral leads. No convincing ischemic changes. No significant arrhythmias. No chest pain. The patient felt fatigue. RAW DATA: Increased subdiaphragmatic activity. GATED STUDY: Stress LV ejection fraction 63% without any obvious wall motion abnormalities. Resting end-diastolic volume 132 mL. TID ratio 0.95, which is within normal limits. Lung/heart ratio 0.49, which is abnormal. MYOCARDIAL PERFUSION SCAN: Stress supine and resting supine images revealed small size, mildly decreased perfusion of inferior wall extending into the inferoapex, which got completely resolved during stress prone images suggestive of diaphragmatic tissue attenuation artifact. No convincing ischemia or infarction pattern seen. CONCLUSION: This is a normal myocardial perfusion study with evidence of diaphragmatic tissue attenuation artifact, which got resolved during stress prone images. Diminished exercise tolerance. Normal hemodynamic response. Preserved left ventricular function. No transient ischemic dilatation. No significant arrhythmias. As far as perfusion scan is concerned, this is a low- risk myocardial perfusion scan. However, lung-heart ratio is abnormal. Consider 2D echo to make sure the patient does not have any significant diastolic dysfunction or valvular pathology. Kendall Tavares - GAMAL/jen/rodger doc#: [id number]/job#: [id number] dd: 11/29/2022 16:51:00 dt: 11/29/2022 18:05:00 DICTATING MD/COPIES TO: William Woo MD COPIES MNE: RENNY;
== END ==
PROVIDERS: PCP Family Medicine; Referring Provider Family Medicine; Visit Provider Family Medicine
DX: I21.4 Non-ST elevation (NSTEMI) myocardial infarction (principal); R07.9 Chest pain, unspecified; I10 Essential (primary) hypertension; E78.5 Hyperlipidemia, unspecified
CPT/HCPCS: 78452; 93017; A9502

== ENCOUNTER → 2022-12-03 13:00 | Outpatient (CLI) | payer OTHER, SELFPAY ==
--- NOTE | 2022-12-03 | DI.MRI.S_ITS ---
PROCEDURE: MR SHOULDER LT WO CON INDICATIONS: Strain of muscle rotator cuff of left shoulder TECHNIQUE: Noncontrast oblique coronal T2 fast spin echo with fat saturation, oblique sagittal T1 spin echo and T2 fast spin echo with fat saturation, axial T1 spin echo and T2 fast spin echo with fat saturation through the shoulder. COMPARISON: [facility] [place], CR, XR SHOULDER 2+ VIEWS LEFT, 04/26/2022, 8:43. [facility], MR, MR SHOULDER LT WO CON, 07/07/2019, 16:14. FINDINGS: Image quality: Excellent. Rotator cuff: There is full-thickness rupture involving posterior fibers of distal supraspinatus approximately 1.3 cm from its insertion on humeral head and up to 1.1 cm medial retraction of torn tendon fibers to the level of acromion. Fluid-filled gap is seen measures 1 cm in AP dimension. Low to moderate grade articular and bursal surface partial thickness tear involving anterior to mid fibers of distal supraspinatus is seen extending to musculotendinous junction. Distal infraspinatus tendinosis is seen. Low-grade intrasubstance partial-thickness tear involving distal subscapularis is also seen. Sagittal images demonstrate mild supraspinatus muscle atrophy. Bones and bursae: No bone marrow contusions or fractures. Mild to moderate acromioclavicular joint osteoarthritic changes are seen with joint space narrowing and marginal osteophyte formation depressing the musculotendinous junction of supraspinatus. Mild to moderate glenohumeral joint osteoarthritic changes also seen. There is small to moderate amount of joint effusion and subacromial subdeltoid bursal fluid. No gross loose bodies. Capsule and soft tissues: Signal abnormality and contour irregularity involving superior anterior labrum at 12 to 2 o'clock position is seen suggestive of superior anterior labral tear. The long head of the biceps tendon appears thickened with intrasubstance T2 hyperintense signal. The rotator interval appears normal, without fibrosis. The coracohumeral ligament is normal in thickness. IMPRESSION: 1. Full-thickness rupture involving posterior fibers of distal supraspinatus approximately 1.3 cm from its insertion on him with up to 1.1 cm medial retraction of torn tendon fibers to the level of acromion and fluid-filled gap measures 1 cm in AP dimension. Low to moderate grade articular and bursal surface partial thickness tear involving distal supraspinatus anterior to mid fibers extending to musculotendinous junction. Mild supraspinatus muscle atrophy. 2. Distal infraspinatus tendinosis. Low-grade intrasubstance partial-thickness tear involving superior to mid fibers of distal subscapularis. 3. Moderate acromioclavicular joint osteoarthritis and [id number]-zk-shngqwfr glenohumeral joint osteoarthritis. No fracture or dislocation. Small to moderate amount of subacromial subdeltoid bursal fluid. No gross loose bodies. 4. Suggestion of superior anterior labral tear at 12 to 2 o'clock position. 5. Tendinosis and low-grade intrasubstance partial-thickness tear involving proximal long head of biceps tendon. Dictated by: Dennys Milligan M.D. on 12/03/2022 at 15:12 Approved by: Dennys Milligan M.D. on 12/03/2022 at 15:16
== END ==
PROVIDERS: PCP Family Medicine; Referring Provider Orthopaedic Surgery; Visit Provider Orthopaedic Surgery
DX: S46.012D Strain of muscle(s) and tendon(s) of the rotator cuff of left shoulder, subsequent encounter (principal); M19.012 Primary osteoarthritis, left shoulder; S46.112A Strain of muscle, fascia and tendon of long head of biceps, left arm, initial encounter
CPT/HCPCS: 73221

== ENCOUNTER → 2023-02-07 09:48 | Outpatient (CLI) | payer OTHER, SELFPAY ==
--- NOTE | 2023-02-07 09:49 | DI.RAD.S_ITS ---
PROCEDURE: XR KNEE RT 3V INDICATIONS: right knee pain TECHNIQUE: 3 views of the knee were acquired. COMPARISON: None. FINDINGS: Bones: No acute fractures or dislocations. Possible posttraumatic deformity of the patella. No suspicious bony lesions. Mild medial and lateral compartment degenerative changes, moderate patellofemoral compartment degenerative changes. Soft tissues: No joint effusion. No suspicious soft tissue calcifications. IMPRESSION: No acute fracture identified. Tricompartmental degenerative changes of the knee are present. If symptoms persist, follow-up radiographs and/or CT or MRI may be helpful for further evaluation. Dictated by: Andres Kearns M.D. on 02/07/2023 at 12:05 Approved by: Andres Kearns M.D. on 02/07/2023 at 12:17
== END ==
PROVIDERS: PCP Family Medicine; Referring Provider Nurse Practitioner Family; Visit Provider Nurse Practitioner Family
DX: M25.561 Pain in right knee (principal)
CPT/HCPCS: 73562

== ENCOUNTER → 2023-06-20 07:25 | Outpatient (CLI) | payer OTHER, SELFPAY ==
[2023-06-20 07:56] LABS: Add Manual Diff / Slide Review NO; Basophils Absolute Auto 0 /uL (0-100); Basophils Percent Auto 0.6 % (0-2); Eosinophils Absolute Auto 500 /uL (0-450); Eosinophils Percent Auto 6.9 % (2-4); Hematocrit 37.4 % (41-53); Hemoglobin 12.9 g/dL (13.5-17.5); Lymphocytes Absolute Auto 2300 /uL (1100-4500); Lymphocytes Percent Auto 31.8 % (25-40); Mean Corpuscular HGB Conc 34.4 % (30-36); Mean Corpuscular Volume 90.2 fL (80-100); Monocytes Absolute Auto 900 /uL (0-900); Monocytes Percent Auto 12.5 % (3-14); Neutrophils Absolute Auto 3400 /uL (1500-7000); Neutrophils Percent Auto 48.2 % (50-75); Platelet Count 330 X10^3/uL (150-400); Red Blood Cell Count 4.15 X10^6/uL (4.5-5.9); Red Cell Distribution Width 12.8 % (11.6-14.8); White Blood Cell Count 7.1 X10^3/uL (4.5-11.0)
[2023-06-20 08:11] LABS: Alanine Aminotransferase 19 IU/L (<50); Albumin 4.2 g/dL (3.5-5.0); Albumin Globulin Ratio 1.4 (1.0-2.8); Alkaline Phosphatase 62 U/L (38-126); Aspartate Aminotransferase 31 IU/L (17-59); BUN Creatinine Ratio 17.1 (6-22); Bilirubin Total 0.4 mg/dL (0.2-1.3); Blood Urea Nitrogen 12 mg/dL (9-20); Calcium 9.4 mg/dL (8.4-10.2); Carbon Dioxide 27 mmol/L (22-32); Chloride 100 mmol/L (98-107); Cholesterol 133 mg/dL (140-199); Estimated Glomerular Filt Rate > 60 mL/min (>60); Glucose 104 mg/dL (80-110); HDL Cholesterol 41 mg/dL (40-60); HEMOLYSIS < 15 (0-50); LDL Cholesterol Calculated 75 mg/dL (<100); Sodium 134 mmol/L (137-145); Total Protein 7.2 g/dL (6.3-8.2); Triglycerides 87 mg/dL (35-150)
[2023-06-23 15:47] LABS: Fecal Immunochemical Test Negative (Negative)
== END ==
PROVIDERS: PCP Family Medicine; Referring Provider Family Medicine; Visit Provider Family Medicine
DX: E78.00 Pure hypercholesterolemia, unspecified (principal); Z12.11 Encounter for screening for malignant neoplasm of colon; I21.4 Non-ST elevation (NSTEMI) myocardial infarction; I10 Essential (primary) hypertension
CPT/HCPCS: 36415; 80053; 80061; 82274; 85025

== ENCOUNTER → 2023-06-27 13:34 | Outpatient (CLI) | payer OTHER, SELFPAY ==
--- NOTE | 2023-06-27 13:37 | DI.RAD.S_ITS ---
PROCEDURE: XR HAND RT MIN 3V INDICATIONS: hand pain TECHNIQUE: Three views of the hand acquired. COMPARISON: None. FINDINGS: Bones: No acute fractures or dislocations. Carpal bones are normally aligned. No suspicious bony lesions. Moderate to severe 1st carpometacarpal joint osteoarthrosis. Mild scattered degenerative changes are seen throughout the remainder of the wrist and fingers. Soft tissues: No suspicious soft tissue calcifications. IMPRESSION: Moderate to severe right 1st carpometacarpal osteoarthrosis. Mild scattered degenerative changes in the remainder of the hand and wrist. Approved by: Andres Mcgee M.D. on 06/27/2023 at 15:34
--- NOTE | 2023-06-27 13:37 | DI.RAD.S_ITS ---
PROCEDURE: XR HAND LT MIN 3V INDICATIONS: hand pain TECHNIQUE: Three views of the hand acquired. COMPARISON: None. FINDINGS: Bones: No acute fractures or dislocations. Carpal bones are normally aligned. No suspicious bony lesions. Well-defined periarticular lucencies are seen at the 1st through 3rd metacarpophalangeal joints. Moderate degenerative changes are seen at the 1st carpometacarpal joint. Soft tissues: No suspicious soft tissue calcifications. IMPRESSION: 1. Moderate 1st carpometacarpal osteoarthrosis. Mild scattered degenerative changes in the wrist and fingers. 2. Subchondral cystic changes versus chronic osseous erosions are seen at the 1st through 3rd metacarpophalangeal joints. A mild chronic inflammatory arthritis is not excluded. Approved by: Andres Mcgee M.D. on 06/27/2023 at 15:33
[2023-06-27 16:05] LABS: HEMOLYSIS < 15 (0-50); Iron 36 ug/dL (49-181)
[2023-06-27 16:16] LABS: Percent Iron Saturation 14 % (20-50); Total Iron Binding Capacity 253 ug/dL (261-462); Transferrin 184 mg/dL (206-381)
[2023-06-27 16:37] LABS: Thyroid Stimulating Hormone 0.396 uIU/mL (0.47-4.68)
[2023-06-27 16:42] LABS: Ferritin 117 ng/mL (18-464)
== END ==
PROVIDERS: PCP Family Medicine; Referring Provider Family Medicine; Visit Provider Family Medicine
DX: M79.642 Pain in left hand (principal); M18.0 Bilateral primary osteoarthritis of first carpometacarpal joints; M79.641 Pain in right hand; Z86.2 Personal history of diseases of the blood and blood-forming organs and certain disorders involving the immune mechanism; Z13.29 Encounter for screening for other suspected endocrine disorder
CPT/HCPCS: 36415; 73130; 82728; 83540; 83550; 84443

== ENCOUNTER 2023-11-13 10:54 | Day surgery (SDC) | payer OTHER, SELFPAY ==
[2023-11-06 12:42] VITALS: BMI 26.3
[2023-11-13 11:21] VITALS: BMI 25.8
[2023-11-13 11:29] VITALS: BP 153/58; PULSE 54; RESP 16; TEMP 36.6; O2SAT 99
[2023-11-13] MEDS: LACTATED RINGERS 1,000 ML 42 ML IV (11:41)
--- NOTE | 2023-11-13 12:41 | P.HP_ITS ---
History of Present Illness History of Present Illness Date Patient Seen: 11/13/23 Time Patient Seen: 12:41 Chief complaint: [facility] [place] Narrative: 78-year-old gentleman with a long history left shoulder pain and weakness. Had an MRI showing signs of a rotator cuff tear. [facility] Medical History BCC (basal cell carcinoma) Chronic iron deficiency anemia Low TSH level Nicotine dependence Chronic pain of right knee Balance problem NSTEMI (non-ST elevated myocardial infarction) (10/13/22) Other skin changes History of basal cell carcinoma Hypertrophic actinic keratosis Pain of left middle finger Erectile dysfunction Bilateral foot pain History of tobacco abuse Sinus bradycardia by electrocardiogram Hand problems Right elbow pain Cold extremities Insomnia Former smoker Impaired vision Pre-diabetes Acute back pain GERD (gastroesophageal reflux disease) (Unknown) Hypertension (Unknown) Hyperlipemia (Unknown) Spinal stenosis (Unknown) Skin cancer (1994) Plantar warts (1981) Shoulder pain (2000) Lumbar disc disease (2014) Ankle pain (2014) Anemia (1983) Carpal tunnel syndrome (1996) Chronic back pain (2014) Surgical History Hx of bilateral cataract extraction History of nasal surgery History of cardiac cath (10/13/22) History of rectal surgery History of tonsillectomy Hx of laminectomy (~08/2017) History of lumbar fusion (~08/2017) Hx of rotator cuff surgery (~1997) Hx of elbow surgery (1975) H/O left knee surgery (2008) H/O right knee surgery (~1987) History of carpal tunnel release (~1997) Family History Father No problems noted. Mother Cancer Sister Heart problem Social History household members: significant other and none Smoking Status: Former smoker Tobacco: How many years used: 25 alcohol intake: current Meds Home Medications and Allergies Home Medications Medication Instructions Recorded Confirmed Type aspirin 81 mg tablet,delayed 81 mg PO QDAY ##0 05/01/16 11/13/23 History release nitroglycerin 0.4 mg sublingual 0.4 mg sublingual Q5-15M PRN chest 10/17/22 11/04/23 Rx tablet pain #10 tabs tadalafil (pulm. hypertension) 20 20 mg PO DAILY PRN sexual activity 02/19/23 11/04/23 Rx mg tablet (pulmonary hypertension) #90 tabs cyclosporine 0.05 % eye drops in a 1 drp EYE-BOTH BID 05/21/23 11/13/23 History dropperette rosuvastatin 40 mg tablet 40 mg PO DAILY 05/21/23 11/13/23 History tizanidine 2 mg tablet 2 mg PO DAILY 05/21/23 11/13/23 History omeprazole 20 mg capsule,delayed See Rx Instructions .Route 05/27/23 11/13/23 Rx release .COMPLEX #90 caps acetaminophen 650 mg 650 mg PO Q12H 06/27/23 11/13/23 History tablet,extended release (Tylenol Arthritis Pain) ketoconazole 2 % shampoo See Rx Instructions .Route 08/27/23 11/04/23 Rx .COMPLEX #120 mL valsartan 320 1 tab PO DAILY #90 tabs 10/14/23 11/13/23 Rx mg-hydrochlorothiazide 25 mg tablet ferrous gluconate 236 mg (27 mg 58 mg PO QAM 11/04/23 11/13/23 History iron) tablet hydrocodone 7.5 mg-acetaminophen 0.5 tab PO DAILY 11/04/23 11/13/23 History 325 mg tablet Allergies Allergy/AdvReac Type Severity Reaction Status Date / Time No Known Drug Allergies Allergy Verified 11/13/23 11:16 Exam Vital Signs (past 8 hours): - 11/13/23 11:29 Temperature 97.9 F Pulse Rate 54 L Respiratory Rate 16 Blood Pressure 153/58 H Pulse Oximetry 99 Oxygen Delivery Method Room Air Oxygen Delivery Method Room Air Narrative Exam Narrative: Decreased range of motion more due to pain than actual stiffness. Difficulty going beyond 90? of forward flexion and abduction but passively can be fully ranged. Concentric external and internal rotation with the arm at the side. Positive Vince empty can test positive Neer positive Carpio. Negative Speed's negative Oakfield's negative Yergason's. No sign of any glenohumeral joint crepitus or instability. Assessment & Plan Assessment & Plan narrative: 78-year-old gentleman with a left rotator cuff tear that has been unresponsive to conservative treatment. Due to this fact he is interested in surgery to address the tear. Fully understands the risks and limitations associated with the procedure. The risk, benefits, alternatives, possible complications, operative course, and postop outcomes were discussed. Complications including but not limiting to bleeding, infection, fracture, nerve injury, continued pain postoperatively or instability postoperatively were discussed in detail. Medical complications including but not limited to deep venous thrombosis event, anesthesia complications with excessive bleeding, vascular events or cardiac events and other possible complications were discussed in detail. Need for postoperative rehabilitation and anticipated hospital stay and clinical course were discussed in detail. Patient acknowledges understanding and elects to proceed with surgery.
--- NOTE | 2023-11-13 12:42 | PM.PREOP ---
Pre-operative Note Interval Note History & Physical reviewed/Exam performed by Physician: Yes Changes to H&P: No
[2023-11-13] MEDS: CEFAZOLIN 2 GM/100 ML PREMIX 100 ML IV (13:40)
[2023-11-13] MEDS: TRANEXAMIC ACID 1,000 MG VIAL 1000 MG INJ (13:55)
--- NOTE | 2023-11-13 14:09 | SUR.OPER ---
Beach chair with Maquet shoulder positioner. Lower body on padded OR bed. Head in foam padded head cradle, secured with straps. Non-operative arm secured <90 degrees abduction. Pillow under knees. Safety belt at thigh. Cloth tape over blanket over lower legs.
[2023-11-13] MEDS: BUPIVACAINE 0.5% W/ EPI (PF) 30 ML VIAL INJ (14:23)
[2023-11-13] MEDS: SODIUM CHLORIDE IRRIG SOLUTION 3,000 ML, EPINEPHrine 1 MG IRR (14:58)
--- NOTE | 2023-11-13 15:03 | PM.OP.1 ---
Operative Date/Time/Diagnoses Date of procedure: 11/13/23 Time of procedure: 14:30 Pre-op diagnosis: Left rotator cuff tear Post-op diagnosis: same Procedure & Clinicians Procedure: Left arthroscopic rotator cuff repair, left subacromial decompression, left extensive debridement Same procedure as scheduled: Yes Indications: Left rotator cuff tear Surgeon: Victoriano [employer] Officer: Eyad Pham Anesthesia Type: General and Peripheral nerve block Operative Notes Findings: Small tear involving the supraspinatus with minimal retraction. Complete tear of the biceps tendon with degenerative tissue left on the bicipital anchor. Degenerative changes throughout the labrum. Synovitis in the glenohumeral joint as well as early stage arthritic changes to the humeral head and glenoid but no sign of any full-thickness cartilage loss. Synovitis and bursitis in the subacromial and subdeltoid space. Partial tearing to the articular surface of the infraspinatus as well as bursal surface but no sign of any high-grade partial tear involving the infraspinatus or subscapularis. Closure Type: primary Applied: implant(s) (Arthrex SpeedBridge) Procedure in detail: On date of service, Patient was met in the holding area. The operative site was signed and witnessed by the OR staff. The surgeries once again discussed with the patient and any remaining questions they had were answered fully. Patient was taken back to the operating theater and placed on the operating table in a supine position. Great care was taken to ensure that all bony prominences were properly padded. Patient was then placed into the beach chair position. The head and neck were properly positioned and secured. A timeout was performed verifying patient's name, procedure, and the operative site. The upper extremity was then prepped and draped in the normal sterile fashion. Previously, the bony anatomy and portal sites were marked out as well as injected with Marcaine with epinephrine. An 11 blade was used to make an incision in the posterior aspect of the shoulder. The camera was placed, and a diagnostic shoulder scope was performed. Findings listed above. Next under direct visualization, a anterior portal was made. Shaver was brought in and extensive debridement of the degenerative changes to the labrum was performed. Shaver was used to debride the bicipital anchor and any remaining biceps tendon tissue. Shaver was also used to remove the synovitis in the glenohumeral joint as well as debride the humeral head and glenoid. Shaver was then also used to debride the articular aspect of the infraspinatus and subscapularis where there were some mild partial tears. Next the camera was placed into the subacromial space. A lateral portal was obtained under direct visualization. A combination of the shaver and vapor wand, a debridement of the inflamed tissue as well as inflamed bursa and synovitis was performed. The lateral gutter was also cleaned out. There was a significant amount of bursitis and synovitis in both the subacromial and subdeltoid space. After this was all cleaned out, This gave us good visualization of the bursal aspect of the rotator cuff as well as the acromial arch. There was an obvious impingement lesion in the acromial arch. Next we turned our attention to the subacromial decompression. Next, a mechanical rasp was then used to do a subacromial decompression. This allowed us to convert the acromion to a type I acromial. This also allowed us to shave down the bony lesion in the acromial space. The rasp was placed into the lateral portal as well as the anterior portal in order to do a complete subacromial decompression. We then turned our attention to the rotator cuff tear. Patient had a small tear involving just the supraspinatus with minimal retraction. Due to the acute nature of the tear the cuff was still very mobile and had not scarred in at all. We could very easily pull it back to the rotator cuff footprint. Using the bur, the rotator cuff footprint was decorticated down to bleeding bone. Next, 2 medial anchors were placed. One anteriorly 1 posteriorly. Each anchor had 2 strands of fiber tape for a speed bridge repair. The sutures from the posterior anchor were passed through the posterior aspect of the supraspinatus. Then the sutures from the anterior anchor was passed through the anterior aspect of the supraspinatus. When pulling on the sutures we were able to reduce both the supraspinatus and infraspinatus to their respective footprints. Next, a punch was used to make a hole in the bone for the 2 medial anchors. This was done also anteriorly and posteriorly. A single suture from the anterior medial anchor and a single suture from the posterior medial anchor were placed into the anterior lateral anchor allowing us to tenodesis the rotator cuff across the rotator cuff footprint for the supraspinatus. This was then repeated with the remaining suture both anteriorly and posteriorly. And these 2 sutures were placed into the posterior medial anchor and tenodesis posteriorly providing a crisscross pattern providing a secure repair of the supraspinatus and a very secure repair of the rotator cuff. Shoulder was taken through range of motion and there was no sign of any other tearing. No sign of any impingement lesions. Camera and cannulas were removed. Portal sites were closed. Patient's shoulder was cleaned, dried, and dressed. Patient was extubated and taken to the PACU in stable condition. Complications: none Post-operative Condition: stable Disposition: PACU Plan for aftercare: Patient will follow our postoperative protocol for rotator cuff repair
[2023-11-13 15:30] VITALS: BP 169/70; PULSE 75; RESP 19; TEMP 36.3; O2SAT 97
[2023-11-13 15:33] VITALS: BP 167/72; PULSE 73; RESP 18; TEMP 36.3; O2SAT 98
[2023-11-13] MEDS: OXYCODONE IR 5 MG TABLET PO ×2 (15:39→15:53)
[2023-11-13 15:40] VITALS: BP 167/70; PULSE 74; RESP 16; TEMP 36.3; O2SAT 96
[2023-11-13 15:44] VITALS: BP 154/66; PULSE 74; RESP 20; TEMP 36.2; O2SAT 95
[2023-11-13] MEDS: ONDANSETRON 4 MG/2 ML INJ IV (15:53)
== END 2023-11-13 16:39 | disposition home or self-care (01) ==
PROVIDERS: PCP Family Medicine; Referring Provider Orthopaedic Surgery; Visit Provider Orthopaedic Surgery
PROC: (CPT 29827; principal; 2023-11-13 12:30)
DX: S46.012A Strain of muscle(s) and tendon(s) of the rotator cuff of left shoulder, initial encounter (principal); S43.432A Superior glenoid labrum lesion of left shoulder, initial encounter; M75.42 Impingement syndrome of left shoulder
CPT/HCPCS: 29827; 29826; 29823; J0171; J0690; J1100; J1885; J2405; J2704; J3010; J3490

== ENCOUNTER → 2024-04-26 10:50 | Outpatient (CLI) | payer OTHER, SELFPAY ==
[2024-04-26 13:10] LABS: Free T3, Triiodothyronine Free 4.22 pg/mL (2.77-5.27); Free T4, Direct Thyroxine 1.48 ng/dL (0.78-2.19)
[2024-04-26 13:24] LABS: Thyroid Stimulating Hormone 0.849 uIU/mL (0.47-4.68)
[2024-04-27 19:35] LABS: Anti Thyroglobulin Antibody <1.0 IU/mL (0.0-0.9); Thyroid Peroxidase Antibodies <9 IU/mL (0-34)
== END ==
LOC: LAB 10:51
PROVIDERS: PCP Family Medicine; Referring Provider Family Medicine; Visit Provider Family Medicine
DX: E61.1 Iron deficiency (principal); R79.89 Other specified abnormal findings of blood chemistry
CPT/HCPCS: 36415; 84439; 84443; 84481; 86376; 86800

== ENCOUNTER → 2024-06-18 13:32 | Outpatient (CLI) | payer OTHER, SELFPAY ==
--- NOTE | 2024-06-18 13:33 | DI.MRI.S_ITS ---
PROCEDURE: MR SHOULDER LT WO CON INDICATIONS: STRAIN OF MUSCLE/TEND ON ROTATOR CUFF LT SHOULDER TECHNIQUE: Noncontrast oblique coronal T2 fast spin echo with fat saturation, oblique sagittal T1 spin echo and T2 fast spin echo with fat saturation, axial T1 spin echo and T2 fast spin echo with fat saturation through the shoulder. COMPARISON: [facility], CR, XR SHOULDER 2+ VIEWS LEFT, 04/26/2024, 13:57. [facility], MR, MR SHOULDER LT WO CON, 12/03/2022, 13:23. [facility], MR, MR SHOULDER LT WO CON, 07/07/2019, 16:14. FINDINGS: Image quality: Fair; motion artifact on multiple sequences limits evaluation. Bones: Mild marrow edema is present at the posterior-superior glenoid (6/12). Insertional cysts are present at the posterior-lateral humeral head (6/9). Tubular susceptibility artifact is present at the greater tuberosity, related to the likely rotator cuff repair (/12; 8/). Otherwise, the marrow signal is within normal limits. There is no acute fracture or dislocation. Acromioclavicular joint: Moderate osteoarthritis. There is a type 2 acromion. Glenohumeral joint: Mild osteoarthritis. There is a small joint effusion with synovial proliferation and a possible 0.8 cm intra-articular body in the subcoracoid recess (6/11). Labrum: There is circumferential degeneration and tearing of labrum extending from 12:00 to 3:00 (10/9; 9 o'clock is anterior). Cartilage: There is diffuse thinning of the glenohumeral articular cartilage. Subacromial-subdeltoid bursa: There is small-moderate amount of fluid in the subacromial-subdeltoid bursa. Rotator cuff: There is severe tendinosis of the repaired posterior supraspinatus fibers and infraspinatus fibers into a conjoined tendon anchored at the greater tuberosity (05/22-21). The integrity of the rotator cuff/suture anchor unit is preserved. The anterior supraspinatus fibers appear to be attached at the lesser tuberosity. There is a near full-thickness tear of the cranial fibers of the subscapularis, superimposed on severe tendinosis. The teres minor tendon is intact. Long head of biceps tendon: There has been prior biceps tenodesis, with residual severe tendinosis and medial dislocation of the intra-articular portion, relative to the bicipital groove. Musculature: There is mild atrophy of the supraspinatus and cranial subscapularis fibers. Muscle bulk is otherwise preserved without evidence of denervation or fatty atrophy. Inferior glenohumeral ligaments/Axillary pouch: The axillary pouch is thickened with low signal. Coracoclavicular and coracoacromial ligaments: The coracoclavicular and coracoacromial ligaments are normal. Other: There is loss of the fat signal at the rotator interval. IMPRESSION: 1. Status post prior rotator cuff repair of the conjoined supraspinatus/infraspinatus tendons with preserved suture anchor-tendon integrity. Please correlate these findings in the context of the available surgical history regarding this repair. 2. Near full-thickness tear of the cranial subscapularis fibers, superimposed on severe tendinosis. 3. Status post prior biceps tenodesis with residual severe tendinosis and medial dislocation of the intra-articular portion. 4. Mild glenohumeral osteoarthritis with extensive synovitis and possible subcentimeter intra-articular body. 5. Moderate acromioclavicular osteoarthritis. 6. Moderate subacromial-subdeltoid bursitis. 7. Findings suggestive of adhesive capsulitis. Dictated by: Edson Handley M.D. on 06/18/2024 at 15:37 Approved by: Edson Handley M.D. on 06/18/2024 at 15:59
== END ==
PROVIDERS: PCP Family Medicine; Referring Provider Orthopaedic Surgery; Visit Provider Orthopaedic Surgery
DX: S46.012D Strain of muscle(s) and tendon(s) of the rotator cuff of left shoulder, subsequent encounter (principal); M19.012 Primary osteoarthritis, left shoulder; M65.912 Unspecified synovitis and tenosynovitis, left shoulder; M75.02 Adhesive capsulitis of left shoulder; M67.912 Unspecified disorder of synovium and tendon, left shoulder; Z98.890 Other specified postprocedural states
CPT/HCPCS: 73221

== ENCOUNTER → 2024-11-24 12:34 | Outpatient (CLI) | payer OTHER, SELFPAY ==
--- NOTE | 2024-11-24 12:36 | DI.RAD.S_ITS ---
PROCEDURE: XR KNEE RT 3V INDICATIONS: knee pain TECHNIQUE: 3 views of the knee were acquired. COMPARISON: [facility], CR, XR KNEE RT 3V, 02/07/2023, 9:46. FINDINGS: Bones: Mild deformity of the inferior patellar pole likely represents an old fracture Joints: Moderate patellofemoral and mild medial tibial femoral degeneration appreciated. Soft tissues: Normal IMPRESSION: Moderate patellofemoral and medial tibial femoral degeneration. Probable malunified old fracture inferior pole of patella Dictated by: Rafa Srivastava M.D. on 11/25/2024 at 12:32 Approved by: Rafa Srivastava M.D. on 11/25/2024 at 12:34
== END ==
PROVIDERS: PCP Family Medicine; Referring Provider Family Medicine; Visit Provider Family Medicine
DX: M25.561 Pain in right knee (principal); G89.29 Other chronic pain
CPT/HCPCS: 73562

== ENCOUNTER 2025-01-05 11:27 | Day surgery (SDC) | payer OTHER, SELFPAY ==
[2025-01-05 12:03] VITALS: BP 142/63; PULSE 48; RESP 16; TEMP 36.2; O2SAT 98
--- NOTE | 2025-01-05 12:08 | PM.HP.IH.1 ---
History of Present Illness History of Present Illness Date Patient Seen: 01/05/25 Chief complaint[place] [facility] [place]: Colon cancer screening [facility] Medical History (Updated 11/29/24 @ 13:39 by Kathryn Reynolds [facility]) Frequent nosebleeds Hx of colonic polyps BCC (basal cell carcinoma) Chronic iron deficiency anemia Low TSH level Nicotine dependence Chronic pain of right knee Balance problem NSTEMI (non-ST elevated myocardial infarction) (10/13/22) Other skin changes History of basal cell carcinoma Hypertrophic actinic keratosis Pain of left middle finger Erectile dysfunction Bilateral foot pain History of tobacco abuse Sinus bradycardia by electrocardiogram Hand problems Right elbow pain Cold extremities Insomnia Former smoker Impaired vision Pre-diabetes Acute back pain GERD (gastroesophageal reflux disease) (Unknown) Hypertension (Unknown) Hyperlipemia (Unknown) Spinal stenosis (Unknown) Skin cancer (1994) Plantar warts (1981) Shoulder pain (2000) Lumbar disc disease (2014) Ankle pain (2014) Anemia (1983) Carpal tunnel syndrome (1996) Chronic back pain (2014) Surgical History Hx of bilateral cataract extraction History of nasal surgery History of cardiac cath (10/13/22) History of rectal surgery History of tonsillectomy Hx of laminectomy (~08/2017) History of lumbar fusion (~08/2017) Hx of rotator cuff surgery (~1997) Hx of elbow surgery (1975) H/O left knee surgery (2008) H/O right knee surgery (~1987) History of carpal tunnel release (~1997) Family History Father No problems noted. Mother Cancer Sister Heart problem Social History household members: significant other and none Tobacco: How many years used: 25 alcohol intake: current Meds Home Medications and Allergies Home Medications Medication Instructions Recorded Confirmed Type aspirin 81 mg tablet,delayed 81 mg PO QDAY ##0 05/01/16 01/05/25 History release nitroglycerin 0.4 mg sublingual 0.4 mg sublingual Q5-15M PRN chest 10/17/22 01/05/25 Rx tablet pain #10 tabs cyclosporine 0.05 % eye drops in a 1 drp EYE-BOTH BID 05/21/23 01/05/25 History dropperette rosuvastatin 40 mg tablet 40 mg PO DAILY 05/21/23 11/24/24 History tizanidine 2 mg tablet 2 mg PO DAILY 05/21/23 01/05/25 History acetaminophen 650 mg 650 mg PO Q12H 06/27/23 01/05/25 History tablet,extended release (Tylenol Arthritis Pain) ferrous gluconate 236 mg (27 mg 58 mg PO QAM 11/04/23 01/05/25 History iron) tablet hydrocodone 7.5 mg-acetaminophen 0.5 tab PO DAILY 11/04/23 01/05/25 History 325 mg tablet ketoconazole 2 % shampoo 1 applic topical 3XW #120 mL 02/03/24 01/05/25 Rx omeprazole 20 mg capsule,delayed See Rx Instructions .Route 05/19/24 01/05/25 Rx release .COMPLEX #90 caps valsartan 320 1 tab PO DAILY #90 tabs 10/12/24 01/05/25 Rx mg-hydrochlorothiazide 25 mg tablet tadalafil (pulm. hypertension) 20 20 mg PO DAILY PRN sexual activity 11/24/24 11/24/24 Rx mg tablet (pulmonary hypertension) #90 tabs peg 3350-electrolytes 236 240 ml PO Q10M #4,000 mL 12/09/24 Rx gram-22.74 gram-6.74 gram-5.86 gram solution (Golytely) peg 3350-electrolytes 236 240 ml PO Q10M #4,000 mL 12/15/24 Rx gram-22.74 gram-6.74 gram-5.86 gram solution (Golytely) pregabalin 300 mg capsule 300 mg PO DAILY #90 caps 01/05/25 01/05/25 Rx Allergies Allergy/AdvReac Type Severity Reaction Status Date / Time No Known Drug Allergies Allergy Verified 01/05/25 12:01 Exam Narrative Exam Narrative: Oropharynx free of lesions Chest clear to auscultation percussion Cardiac exam reveals no S3 or murmur Assessment & Plan Assessment & Plan narrative: Need for colon cancer screening. Colonoscopy to be performed. Risks, benefits, alternatives have been explained Time-Based Coding :: [TOTAL MINUTES] spent with patient and on the chart (including review of chart, obtaining history, exam, reviewing outside data, placing orders, documenting exam and treatment plan, and counseling patient) on [DATE]. PROFEE Corrosion Prevention Metal Sprayer Document charge(s): No
--- NOTE | 2025-01-05 12:10 | PM.OP.COLON ---
Operative Date/Time/Diagnoses Date of procedure: 01/05/25 Time of procedure: 12:11 Pre-op diagnosis: See indication and findings Post-op diagnosis: same Procedure & Clinicians Study performed: Colonoscopy Same procedure as scheduled: Yes Indications: Colon cancer screening Surgeon: Sandhya White Procedure Notes Procedure in detail: After informed consent was obtained the patient was placed in left lateral decubitus position. The video colonoscope was introduced the rectum slowly advanced cecum. Preparation was good. On slow withdrawal mucosa was carefully examined. The scope was removed. The patient tolerated procedure well. Blood loss none complications none Sedation mac Findings 1. Scattered left-sided diverticulosis 2. Otherwise negative colonoscopy to cecum This will be patient's last colonoscopy
[2025-01-05] MEDS: LACTATED RINGERS 1,000 ML 84 ML IV (12:14)
[2025-01-05 13:31] VITALS: BP 116/53; PULSE 50; RESP 12; TEMP 36.6; O2SAT 95
[2025-01-05 13:36] VITALS: BP 124/55; PULSE 50; RESP 12; O2SAT 96
[2025-01-05 13:41] VITALS: BP 121/56; PULSE 46; RESP 14; O2SAT 97
[2025-01-05 13:47] VITALS: BP 136/49; PULSE 52; RESP 12; TEMP 36.6; O2SAT 97
[2025-01-05 13:52] VITALS: BP 123/55; PULSE 45; RESP 16; O2SAT 95
== END 2025-01-05 14:06 | disposition home or self-care (01) ==
PROVIDERS: PCP Family Medicine; Referring Provider Internal Medicine Gastroenterology; Visit Provider Internal Medicine Gastroenterology
PROC: 0DJD8ZZ Inspection of Lower Intestinal Tract, Via Natural or Artificial Opening Endoscopic (ICD-10-PCS; CPT 45378; principal; 2025-01-05 13:00)
DX: Z12.11 Encounter for screening for malignant neoplasm of colon (principal); K57.30 Diverticulosis of large intestine without perforation or abscess without bleeding
CPT/HCPCS: G0121; J2704